=== PATIENT | male | born 1960 | race Caucasian/White ===

== ENCOUNTER → 2018-07-16 11:47 | Outpatient (CLI) | payer OTHER, SELFPAY ==
[2018-07-16 14:07] LABS: PSA,Total - Annual Screen 1.29 ng/mL (0.00-4.00)
== END ==
PROVIDERS: Family Provider Nurse Practitioner Adult Health; PCP Nurse Practitioner Adult Health; Referring Provider Urology; Visit Provider Urology
DX: Z12.5 Encounter for screening for malignant neoplasm of prostate (principal)
CPT/HCPCS: 36415; 84153; G0103

== ENCOUNTER → 2020-02-14 11:56 | Outpatient (CLI) | payer OTHER, SELFPAY ==
[2017-01-21 18:28] VITALS: BMI 31.7
[2020-02-14 13:25] LABS: PSA,Total - Annual Screen 0.94 ng/mL (0.00-4.00)
== END ==
PROVIDERS: PCP Nurse Practitioner Adult Health; Referring Provider Urology; Visit Provider Urology
DX: Z12.5 Encounter for screening for malignant neoplasm of prostate (principal)
CPT/HCPCS: 36415; 84153; G0103

== ENCOUNTER → 2021-06-29 16:25 | Outpatient (CLI) | payer OTHER, SELFPAY ==
[2021-06-29 18:21] LABS: PSA,Total - Annual Screen 0.98 ng/mL (0.00-4.00)
== END ==
PROVIDERS: PCP Nurse Practitioner Adult Health; Referring Provider Nurse Practitioner Adult Health; Visit Provider Nurse Practitioner Adult Health
DX: Z12.5 Encounter for screening for malignant neoplasm of prostate (principal)
CPT/HCPCS: 36415; 84153; G0103

== ENCOUNTER → 2022-07-05 | Outpatient (CLI) | payer OTHER, SELFPAY ==
[2022-07-05 16:41] LABS: PSA,Total - Annual Screen 0.96 ng/mL (0.00-4.00)
== END | disposition home or self-care (01) ==
LOC: LAB 15:22
PROVIDERS: PCP Nurse Practitioner Adult Health; Referring Provider Registered Nurse; Visit Provider Registered Nurse
DX: Z12.5 Encounter for screening for malignant neoplasm of prostate (principal)
CPT/HCPCS: 36415; 84153; G0103

== ENCOUNTER 2022-09-13 08:49 | Emergency (ER) | payer OTHER, SELFPAY ==
[2022-09-13 08:51] VITALS: BP 128/77; PULSE 93; RESP 12; TEMP 36.7; O2SAT 96; BMI 28.7
--- NOTE | 2022-09-13 09:12 | EKG12_ITS ---
Test Reason : RE CHECK Blood Pressure : / mmHG Vent. Rate : 092 BPM Atrial Rate : 092 BPM P-R Int : 198 ms QRS Dur : 068 ms QT Int : 344 ms P-R-T Axes : 063 031 004 degrees QTc Int : 425 ms Normal sinus rhythm Nonspecific ST abnormality Abnormal ECG Confirmed by DOMONIQUE DAVIS, YISEL ([id number]), associate entertainment editor ROOSEVELT MARRERO ([id number]) on 09/14/2022 9:46:02 AM Referred By: HILARY Confirmed By:YISEL YOUSSEF MD
--- NOTE | 2022-09-13 09:12 | EDS_ITS ---
HPI History of Present Illness Chief Complaint: Palpitations Informant: patient and EMS Onset/Context/Timing Onset: Today (about 10 min prior to EMS arrival) Context: Sudden Onset Timing: Continuous Quality: racing HB Location: chest Current Severity: Gone Maximum Severity: Severe Worsened by: nothing Relieved by: adenosine given by EMS Associated Symptoms Associated Symptoms: none Narrative Narrative: Patient had a racing palpitations that started suddenly while at work today. He was feeling fine prior to this and has had no recent illness or injury, medication changes, or new [id number] medications. This is happened before but it was never captured on EKG/monitor, so EMS was called immediately, they found SVT on their monitor, place an IV, give the patient adenosine, and this immediately terminated the dysrhythmia now the patient is asymptomatic and feels fine. He states this is happened maybe 2 other times, but it was never captured on monitor or EKG. He did follow-up with cardiology, this was last year and he was supposed to have a 6-month follow-up which has not occurred yet. [facility] Medical History Diabetes Hyperlipidemia SVT (supraventricular tachycardia) Home Medications metformin 500 mg 24 hr tablet,extended release 1,000 mg PO BIDCM 01/21/17 [History Last Taken Unknown] pravastatin 40 mg tablet 40 mg PO QHS 01/21/17 [History Last Taken Unknown] tamsulosin 0.4 mg capsule (Flomax) 0.4 mg PO DAILY 01/21/17 [History Last Taken Unknown] Allergy/AdvReac Type Severity Reaction Status Date / Time morphine Allergy Nausea/Vom/ Verified 09/13/22 08:50 Diarrhea Social History Smoking Status: Current every day smoker tobacco type: cigarettes ROS ROS ED Constitutional Constitutional ED: Denies chills or fever(s) Eyes Eyes: Denies change in vision or diplopia ENT ENT ED: Denies rhinorrhea or sore throat Cardiovascular Cardiovascular: Reports palpitations and racing heartbeat; Denies chest pain Respiratory/Chest Respiratory/Chest: Denies cough or dyspnea Gastrointestinal Gastrointestinal: Denies abdominal pain, diarrhea, nausea or vomiting Genitourinary Genitourinary ED: Denies dysuria or hematuria Musculoskeletal Musculoskeletal: Denies back pain or neck pain Integumentary Denies abscess or rash Neurologic Neurologic: Denies headache(s), paresthesias or weakness Psychiatric Psychiatric: Denies anxiety or suicidal thoughts EXAM Physical Exam Const Vital Signs: 09/13/22 08:51 09/13/22 08:58 Temperature 98.1 F Temperature Source Oral Pulse Rate 93 Respiratory Rate 12 Respiratory Pattern Normal Blood Pressure 128/77 H Blood Pressure Mean 94 Pulse Ox 96 Oxygen Delivery Method Room Air Positive well nourished and well developed General Appearance ED: well developed and NAD HEENT Reports moist mucous membranes normocephalic and atraumatic Eyes PERRL and EOMs intact bilaterally Neck full ROM and supple Resp normal respiratory effort and clear to auscultation bilaterally Cardio regular rate, regular rhythm and no murmurs GI non-tender and non-distended Auscultation: normoactive bowel sounds Palpation: soft Back/Spine no CVA tenderness General Back: other FROM Extremity normal to inspection and no calf tenderness General Extremety ED: Negative for edema, pulses abnormal or tenderness General Extremity: Negative for edema or pulses abnormal Neuro oriented x3, CN's II-XII intact bilaterally and no sensory deficits noted Sensorium / Orientation: awake and alert Motor Exam: strength 5/5 throughout Psych mental status grossly normal Skin no rashes or lesions noted and no wounds MDM MDM MDM Narrative Medical decision making narrative: Patient was monitored, he had no recurrence of symptoms or telemetry events or ectopy. His glucose is a little high, probably from the stress of the episode. His calcium is a little elevated, unknown significance, just barely off the scale. I discussed that with him, he should follow-up to at least have this repeated possibly worked up. I did review the rhythm strips and notes from EMS. I interpreted the rhythm strips from EMS, SVT. 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 His EKG here is normal, on my interpretation. He did not have any ischemic symptoms to suggest the need for admission and further cardiac work-up emergently. Discharged home in stable condition with family. Lab Data Attestation: I reviewed the patient's lab results. Labs: Laboratory Results - last 24 hr 09/13/22 09/13/22 08:30 08:30 WBC 9.9 RBC 4.65 Hgb 15.1 Hct 44.4 MCV 95.5 H MCH 32.5 H MCHC 34.0 RDW Std Deviation 42.9 RDW Coeff of Camilo 12.4 Plt Count 209 MPV 10.3 Immature Gran % (Auto) 0.300 Neut % (Auto) 75.7 H Lymph % (Auto) 16.1 L [place] % (Auto) 6.6 Eos % (Auto) 0.9 Baso % (Auto) 0.4 Absolute Neuts (auto) 7.5 Absolute Lymphs (auto) 1.59 Nucleated RBC % 0 Sodium 137 Potassium 4.2 Chloride 103 Carbon Dioxide 27.0 Anion Gap 7 BUN 15 Creatinine 1.19 Estim Creat Clear Calc 65.19 Est GFR (MDRD) Af Amer 80 Est GFR (MDRD) Non-Af 66 BUN/Creatinine Ratio 12.6 Glucose 324 H Calcium 10.2 H Rhythm Strip Rhythm Strip: Sinus Rhythm Rate: 90 Ectopy: None EKG Initial EKG: Attestation: I personally reviewed and interpreted this EKG as follows: Interpretation: Sinus Rhythm and No Acute Injury Pattern Comments: normal EKG Discharge Plan Triage Chief Complaint: Palpitations ED Provider: Christiano Webber Dx/Rx/DC Orders Clinical Impression: SVT (supraventricular tachycardia), Type 2 diabetes mellitus with hyperglycemia, Hypercalcemia Instructions: Supraventricular Tachycardia, Hypercalcemia Dc Prescriptions: No Action pravastatin 40 MG tablet 40 mg PO QHS tamsulosin [Flomax] 0.4 MG capsule 0.4 mg PO DAILY metformin 500 MG tablet,ER koki.retention 24 hr 1,000 mg PO BIDCM Primary Care Provider: Howie Nicolas Referrals: Germ Drier, your [Other] - 1-2 Weeks Kristen Trujillo NP, AUDIOVISUAL EQUIPMENT OPERATOR-C [Non-Staff] - Disposition Disposition: Home, Self Care
[2022-09-13 09:24] LABS: Absolute Lymphocyte Count 1.59 X10^3/uL (0.83-4.51); Absolute Neutrophil Count 7.5 X10^3/uL (2.0-7.7); Basophil# 0.04 X10^3/uL; Basophil% 0.4 % (0-1); Eosinophil# 0.09 X10^3/uL; Eosinophils% 0.9 % (0-5); Hematocrit 44.4 % (40-54); Hemoglobin 15.1 g/dL (13.0-16.5); Lymphocyte # 1.59 X10^3/ul (0.83-4.51); Lymphocyte % 16.1 % (19-41); Mean Corpuscular Hgb 32.5 pg (27.0-32.0); Mean Corpuscular Volume 95.5 fL (80-94); Mean Platelet Vol. 10.3 fl (6.2-12.0); Monocyte# 0.65 X10^3/uL; Monocyte% 6.6 % (0-10); NRBC Flagged by Analyzer 0 % (0-5); Neutrophil # 7.46 X10^3/uL (2.7-7.7); Neutrophil % 75.7 % (47-70); Platelet Count 209 K/mm3 (150-450); RBC Distribution Width CV 12.4 % (11.6-14.6); RBC Distribution Width SD 42.9 fl (35.1-43.9); Red Blood Count 4.65 M/mm3 (4.6-6.2); White Blood Count 9.9 K/mm3 (4.4-11.0)
[2022-09-13 09:42] LABS: Anion Gap 7 (5-15); BUN 15 mg/dL (7-18); BUN/Creat Ratio 12.6 RATIO (10-20); Calcium,Total 10.2 mg/dL (8.5-10.1); Chloride 103 mmol/L (98-107); Creatinine, Serum 1.19 mg/dL (0.70-1.30); EST Glomerular Filtration Rate 66 mL/min (>60); Est Glom Filt Rate - Afr Amer 80 mL/min (>60); Estimated Creatinine Clearance 65.19 ml/min; Glucose 324 mg/dL (74-106); Potassium 4.2 mmol/L (3.5-5.1); Sodium Level 137 mmol/L (136-145)
[2022-09-13 10:28] VITALS: BP 115/79; PULSE 68; RESP 15; O2SAT 97
== END 2022-09-13 10:29 | disposition home or self-care (01) ==
LOC: ED 09:33
PROVIDERS: Emergency Provider Emergency Medicine; PCP Family Medicine; Visit Provider Emergency Medicine
DX: E11.65 Type 2 diabetes mellitus with hyperglycemia (principal); I47.1 Supraventricular tachycardia; E83.52 Hypercalcemia; E78.5 Hyperlipidemia, unspecified; R00.2 Palpitations; F17.210 Nicotine dependence, cigarettes, uncomplicated
CPT/HCPCS: 80048; 85025; 93005; 99285

== ENCOUNTER 2024-07-07 14:55 | Emergency (ER) | payer OTHER, SELFPAY ==
[2024-07-07 14:56] VITALS: BP 142/86; PULSE 92; RESP 16; TEMP 36.5; O2SAT 100; BMI 24.9
--- NOTE | 2024-07-07 15:08 | CT_ITS ---
STUDY: CT Abdomen And Pelvis W/ Contrast Injection 07/07/2024 4:12 PM REASON FOR EXAM: Male, 63 years old. Abdominal pain right sided abd pain, n/v Individualized dose optimization techniques were used for this CT. COMPARISON: None. TECHNIQUE: CT Abdomen And Pelvis W/ Contrast Injection IV 100mL [id number] FINDINGS: There are atherosclerotic calcifications of visualized coronary arteries. The visualized portions of the heart are within normal limits. There are hypodensities of the liver. These maybe cysts but are indeterminate and other etiologies are not excluded. Normal gallbladder and extrahepatic biliary system. Normal spleen. Normal pancreas. Normal bilateral adrenal glands. Mild right hydronephrosis caused by 13 mm right renal pelvic stone. Left renal cortical scarring. Inflammation around the right kidney. There is a small hiatal hernia. Normal small intestine. There are multiple colonic diverticula consistent with diverticulosis. There is non-visualization of the appendix. There are calcifications of the abdominal aorta. This is consistent for atherosclerotic disease. There is NO abdominal aortic aneurysm. Vascular workup can be obtained based on clinical correlation. Normal inferior vena cava. Subcentimeter mesenteric lymph nodes. The urinary bladder is distended. This can suggest urinary retention. 13 mm stone in the base of the urinary bladder. Normal abdominal wall. There are diffuse degenerative changes of the visualized lumbar spine. CT/Abdomen/Pelvis W IV Cont ONLY IMPRESSION: (NOT LISTED IN ORDER OF SIGNIFICANCE) Mild right hydronephrosis caused by 13 mm right renal pelvic stone. 13 mm stone in the base of the urinary bladder. the urinary bladder is distended. This can suggest urinary retention. Other findings as above. Electronically Signed: Horacio Tena MD at 16:15 EDT ,
--- NOTE | 2024-07-07 15:09 | EDS_ITS ---
HPI HPI - GI History of Present Illness Chief Complaint: Abd Pain Informant: patient Abdominal Pain/Flank Pain Onset: Today (About 5 hours ago) Context: Gradual Onset Timing: Continuous Quality: Aching and Sharp Location: RLQ Current Severity: Severe Maximum Severity: Severe Worsened by: Car ride Relieved by: Nothing Nausea/Vomiting/Emesis GI Symptom: Positive for Nausea and Vomiting Quality: Positive for Nonbilious Severity: Moderate Diarrhea/Melena/Hematochezia GI Symptom: Negative for Diarrhea, Melena or Hematochezia Associated Symptoms Associated Symptoms: Negative for Dysuria, Frequency or Hematuria Narrative Narrative: Healthy 63-year-old male has been having abdominal pain for the last 5 hours that has been on the right side. Associated with nausea and vomiting. [place] well prior to this. States he has had some occasional episodes of this in the past 3 weeks or so that have been uncommon and relatively brief in duration not like this. No prior history of any abdominal surgeries. Pain does not radiate into his scrotum/testicle or his back or his chest and he denies any other symptoms. Normal bowel movements and urination recently. [facility] Medical History Hyperlipidemia Diabetes SVT (supraventricular tachycardia) Home Medications ?Medication ?Instructions ?Recorded ?Last Taken ?Type metformin 500 mg 24 hr 1,000 mg PO BIDCM 01/21/17 Unknown History tablet,extended release (gastric retention) pravastatin 40 mg tablet 40 mg PO QHS 01/21/17 Unknown History tamsulosin 0.4 mg capsule (Flomax) 0.4 mg PO DAILY 01/21/17 Unknown History oxycodone-acetaminophen 5 mg-325 1 tab PO Q4H PRN Pain 3 days #15 07/07/24 Unknown Rx mg tablet TABLETS sulfamethoxazole 800 1 tab PO BID #14 TABLETS 07/07/24 Unknown Rx mg-trimethoprim 160 mg tablet Allergy/AdvReac Type Severity Reaction Status Date / Time morphine Allergy Nausea/Vom/ Verified 07/07/24 14:56 Diarrhea Social History Smoking Status: Current every day smoker tobacco type: cigarettes ROS ROS ED Constitutional Constitutional ED: Denies chills or fever(s) Eyes Eyes: Reports other Details: Right upper eyelid itching, redness, swelling and some mild amount of creamy discharge x 2-3 days ; Denies change in vision or diplopia ENT ENT ED: Denies rhinorrhea or sore throat Cardiovascular Cardiovascular: Denies chest pain or palpitations Respiratory/Chest Respiratory/Chest: Denies cough or dyspnea Gastrointestinal Gastrointestinal: Reports abdominal pain, nausea and vomiting; Denies diarrhea Genitourinary Genitourinary ED: Denies dysuria or hematuria Musculoskeletal Musculoskeletal: Denies back pain or neck pain Integumentary Denies abscess or rash Neurologic Neurologic: Denies headache(s), paresthesias or weakness Psychiatric Psychiatric: Denies anxiety or suicidal thoughts EXAM Physical Exam Const Vital Signs: 07/07/24 14:56 07/07/24 16:55 Temperature 97.7 F L Temperature Source Oral Pulse Rate 92 75 Respiratory Rate 16 18 Blood Pressure 142/86 H 99/57 L Blood Pressure Mean 104 71 Pulse Ox 100 98 Oxygen Delivery Method Room Air Room Air Positive well nourished and well developed General Appearance ED: well developed and NAD HEENT Reports moist mucous membranes normocephalic and atraumatic Eyes PERRL and EOMs intact bilaterally Eyes Narrative: Right upper eyelid is erythematous, mildly swollen, but nontender throughout. There is a small focal area of erythema at the eyelid margin that is not pointing like an abscess, but looks like it could have been the source of all of the erythema but it is completely nontender and without any active discharge. There is no bulbar conjunctival injection or chemosis or active discharge present. Neck full ROM and supple Resp normal respiratory effort and clear to auscultation bilaterally Cardio regular rate, regular rhythm and no murmurs GI non-distended GI Narrative: Tender without guarding or rebound throughout the right side of the abdomen including the subcostal right upper quadrant and the right lower quadrant at McBurney's point. Negative Rovsing. Auscultation: normoactive bowel sounds Palpation: soft Back/Spine no CVA tenderness General Back: other FROM Extremity normal to inspection General Extremety ED: Negative for edema, pulses abnormal or tenderness General Extremity: Negative for edema or pulses abnormal Neuro oriented x3, CN's II-XII intact bilaterally and no sensory deficits noted Sensorium / Orientation: awake and alert Motor Exam: strength 5/5 throughout Psych mental status grossly normal and thought process normal Skin no rashes or lesions noted and no wounds MDM MDM MDM Narrative Medical decision making narrative: Will given the location of the patient's tenderness and his symptoms, cholelithiasis/cholecystitis and acute appendicitis as well as other GI etiologies hemodynamics are in the differential and a CT believe is warranted first in addition to labs, urine, symptom control. Workup reviewed his labs are normal, CT of the abdomen/pelvis images I reviewed and report as well which I agree with, basically showing that he has several stones in the urinary tract on the right side which is probably causing his symptoms. There is a 13 mm right renal pelvic stone that appears to be causing an obstruction with mild right hydronephrosis as well as 13 mm stone separate from this in the base of the urinary bladder along with a distended bladder although the patient has been able to urinate, and gave us a urine specimen after the CT. Therefore he does not clinically have acute urinary retention as the CT results suggest. After giving him fentanyl, Zofran, Toradol he is pain- free and feels good. He is clinically and hemodynamically stable. His urinalysis is brown/light red without clots or gross hematuria, he states this has been going on off and on for like a year. It shows signs of blood and infection. We do not have urology on-call to discuss this with. He follows as an outpatient with Dr. Bui. Since he is pain-free and his pain was easy to control and he is not septic, I think it would be reasonable to prescribe him analgesics, antibiotics, and have him follow-up closely with urology as an outpatient as he would be unlikely to need an emergent procedure right now. If he has intractable symptoms or starts developing fevers or feeling very poorly, he is encouraged to return to the ER immediately at that point. He is comfortable with that overall plan. Lab Data Attestation: I reviewed the patient's lab results. Labs: Laboratory Results - last 24 hr 07/07/24 07/07/24 15:20 16:36 WBC 10.6 RBC 4.76 Hgb 16.0 Hct 45.2 MCV 95.0 H MCH 33.6 H MCHC 35.4 RDW Std Deviation 42.9 RDW Coeff of Camilo 12.4 Plt Count 263 MPV 9.8 Immature Gran % (Auto) 0.800 Neut % (Auto) 82.2 H Lymph % (Auto) 11.8 L [place] % (Auto) 4.6 Eos % (Auto) 0.3 Baso % (Auto) 0.3 Absolute Neuts (auto) 8.7 H Absolute Lymphs (auto) 1.25 Nucleated RBC % 0 Sodium 136 Potassium 4.2 Chloride 104 Carbon Dioxide 24.0 Anion Gap 8 BUN 14 Creatinine 1.13 Estim Creat Clear Calc 66.91 Est GFR (MDRD) Af Amer 84 Est GFR (MDRD) Non-Af 70 BUN/Creatinine Ratio 12.4 Glucose 281 H Calcium 10.1 Total Bilirubin 0.60 AST 12 L ALT 22 Alkaline Phosphatase 75 Total Protein 7.8 Albumin 4.1 Globulin 3.7 Albumin/Globulin Ratio 1.1 Lipase 56 Urine Color Brown Urine Clarity Cloudy Urine pH 7.0 Ur Specific [place] 1.010 Urine Protein 100 H Urine Glucose (UA) 100 H Urine Ketones 15 H Urine Occult Blood 250 H Urine Nitrite Negative Urine Bilirubin Negative Urine Urobilinogen 1 H Ur Leukocyte Esterase 500 H Urine RBC > 100 SEEN Urine WBC >100 SEEN Ur Squamous Epith Cells 0-5 SEEN Urine Bacteria 2+ Urine Mucus 1+ Radiography Diagnostic Testing: Clinical Impression(s) from Imaging Studies Abdomen/Pelvis CT 07/07/24 15:08 IMPRESSION: (NOT LISTED IN ORDER OF SIGNIFICANCE) Mild right hydronephrosis caused by 13 mm right renal pelvic stone. 13 mm stone in the base of the urinary bladder. the urinary bladder is distended. This can suggest urinary retention. Other findings as above. Electronically Signed: Horacio Tena MD at 16:15 EDT Reading Location ID and State: [facility] / [place] , Service support , Discharge Plan Triage Chief Complaint: Abd Pain ED Provider: Christiano Webber Dx/Rx/DC Orders Clinical Impression: Urolithiasis, Renal colic on right side, Acute UTI Instructions: ED Kidney Stone with Pain Prescriptions: New oxycodone-acetaminophen 5-325 mg tablet 1 tab PO Q4H PRN (Reason: Pain) 3 Days Qty: 15 0RF sulfamethoxazole-trimethoprim 800-160 mg tablet 1 tab PO BID Qty: 14 0RF No Action pravastatin 40 MG tablet 40 mg PO QHS tamsulosin [Flomax] 0.4 MG capsule 0.4 mg PO DAILY metformin 500 MG tablet,ER koki.retention 24 hr 1,000 mg PO BIDCM Primary Care Provider: Howie Nicolas Referrals: Santino Bui MD [Med Staff - Active Staff] - As soon as possible (call for appt) Print Language: Polish Disposition Disposition: Home, Self Care
[2024-07-07] MEDS: Ondansetron 4 MG/2 ML Vial IV (15:17)
[2024-07-07] MEDS: Ketorolac 15 MG/ML Vial IV (15:18)
[2024-07-07] MEDS: fentaNYL 100 MCG/2 ML Ampul 50 MCG IV (15:18)
[2024-07-07 15:30] LABS: Absolute Lymphocyte Count 1.25 X10^3/uL (0.83-4.51); Absolute Neutrophil Count 8.7 X10^3/uL (2.0-7.7); Basophil# 0.03 X10^3/uL; Basophil% 0.3 % (0-1); Eosinophil# 0.03 X10^3/uL; Eosinophils% 0.3 % (0-5); Hematocrit 45.2 % (40-54); Lymphocyte # 1.25 X10^3/ul (0.83-4.51); Lymphocyte % 11.8 % (19-41); Mean Corp Hgb Conc 35.4 g/dL (32-36); Mean Corpuscular Hgb 33.6 pg (27.0-32.0); Mean Platelet Vol. 9.8 fl (6.2-12.0); Monocyte# 0.49 X10^3/uL; Monocyte% 4.6 % (0-10); NRBC Flagged by Analyzer 0 % (0-5); Neutrophil # 8.73 X10^3/uL (2.7-7.7); Neutrophil % 82.2 % (47-70); Platelet Count 263 K/mm3 (150-450); RBC Distribution Width CV 12.4 % (11.6-14.6); RBC Distribution Width SD 42.9 fl (35.1-43.9); Red Blood Count 4.76 M/mm3 (4.6-6.2); White Blood Count 10.6 K/mm3 (4.4-11.0)
--- OUTSIDE RECORDS SUMMARY | 2024-07-07 15:32 | XMS RPT_ITS | CCD ---
Author Organization [facility] Care Team Providers Care Architectural Inspector Name Role Phone Nora Bardales MD Primary Care Provider [phone] MAYO QUEEN Attending Unavailable NORA BARDALES Primary Care Unavailable Nora Bardales MD Primary Care Provider NORA BARDALES Primary Care Unavailable MD GUZMAN VINAY Attending Unavailable CARLA GUZMAN Referring Unavailable NORA BARDALES Primary Care Unavailable YENIFER CARRASCO Referring Unavailable NORA BARDALES Primary Care Unavailable YENIFER CARRASCO Attending Unavailable NORA BARDALES Primary Care Unavailable NORA BARDALES Primary Care Unavailable MD GUZMAN VINAY Referring Unavailable Allergies Allergy Classification Reported Allergen(s) Allergy Type Date of Onset Reaction(s) Facility (20 sources) Morphine; Translations: [MORPHINE] Drug Allergy 06-23-2005 [facility] Work Phone: Medications Current Medications Medication Drug Class(es) Dates Sig (Normalized) Sig (Original) Blood-Glucose Meter monitoring kit (20 sources) Start: 10-19-2023 End: 10-20-2023 Blood-Glucose Meter monitoring kit Glucose Meter of Choice - Kit - Dx: Type 2 DM - Uncontrolled E11.65 1 Each 0 10/19/2023 10/20/2023 Active Start: 08-18-2012 End: 10-19-2023 Blood-Glucose Meter monitori ng kit Indications: Diabetes mellitus type II Daily check. For DM type II, Dx 250.00 Nora Bardales MD 1 Each 0 08/18/2012 10/19/2023 Discontinued (Cost of medication) Start: 08-18-2012 Blood-Glucose Meter monitoring kit Indications: Diabetes mellitus type II Daily check. For DM type II, Dx 250.00 Nora Bardales MD 1 Each 0 08/18/2012 Active Comment on above: Daily check. For DM type II, Dx 250.00 Nora Bardales MD Glucose Meter of Cho ice - Kit - Dx: Type 2 DM - Uncontrolled E11.65 metFORMIN hydrochloride 500 mg oral tablet (20 sources) Biguanide Start: 2 End: 5 take 2 tablets by mouth twice daily at mealtime metFORMIN (GLUCOPHAGE) 500 mg tablet Take 2 tablets by mouth two times a day with meals. 360 tablet 3 10/19/2023 10/18/2024 Active Start: 09-28-2021 End: 12-21-2021 metFORMIN (GLUCOPHAGE) 500 m g tablet Indications: Controlled type 2 diabetes mellitus without complication, without long-term current use of insulin (HCC) TAKE 2 TABLETS 2 TIMES DAILY WITH MEALS 360 tablet 0 12/21/2021 Active Comment on above: TAKE 2 TABLETS 2 MARGE ES DAILY WITH MEALS Take 2 tablets by mo ut twice daily with meals. Take 2 tablets by mo ut two times a day with meals. perflutren lipid microspheres 1.3 mL in NaCl (PF) 0.9% 10 mL injection (DEFINITY) (4 sources) Start: 11-23-2022 End: 02-22-2024 perflutren lipid microspheres 1.3 mL in NaCl (PF) 0.9% 10 mL injection (DEFINITY) 125 ml sodium chloride 9 mg/ml prefilled syringe (4 sources) Start: 11-23-2022 End: 02-22-2024 sodium chloride 0.9 % (flush) 10 mL (BD POSIFLUSH) Completed/Discontinued Medications Medication Drug Class(es) Dates Sig (Normalized) Sig (Original) ascorbic acid 500 mg oral tablet (20 sources) Vitamin C take 1 tablet by mouth once daily ascorbic acid, vitamin C, (VITAMIN C) 500 mg tablet Take 500 mg by mouth once daily. 0 Active Comment on above: Take 500 mg by mouth once daily. cholecalciferol, vitamin D3, (VITAMIN D3 ORAL) (20 sources) take 1 tablet by mouth once daily cholecalciferol, vitamin D3, (VITAMIN D3 ORAL) Take 1 tablet by mouth once daily. 0 Active Comment on above: Take 1 tablet by yonatan once daily. ferrous sulfate (20 sources) ferrous sulfate (IRON ORAL) Take by mouth. 0 Active Comment on above: Take by mouth. Ibuprofen (12 sources) Nonsteroidal Anti-inflammatory Drug IBUPROFEN ORAL Take by mouth once daily. 0 Active Comment on above: Take by mouth once d aily. MULTIVITS,CA,MIN/ IRON/FA/LYCOP (CENTRUM ULTRA MEN'S ORAL) (20 sources) MULTIVITS,CA,MIN /I LORNA/FA/LYCOP (CENTRUM ULTRA MEN'S ORAL) Take by mouth once daily. 0 Active Comment on above: Take by mouth once d aily. raNITIdine (8 sources) Histamine-2 Receptor Antagonist End: 04-12-2022 RANITIDINE HCL ORAL Take by mouth once daily. 0 04/12/2022 Discontinued RANITIDINE HCL O RAL Take by mouth once daily. 0 Active Comment on above: Take by mouth once d aily. simvastatin 40 mg oral tablet (20 sources) HMG-CoA Reductase Inhibitor Start: 1 End: 4 take 1 tablet by mouth once daily at bedtime simvastatin (ZOCOR) 40 mg tablet Indications: Mixed hyperlipidemia Take 1 tablet by mouth daily at bedtime. For cholesterols. 90 tablet 3 10/19/2023 Active Comment on above: Take 1 tablet by yonatan th daily at bedtime. For cholesterols. SITagliptin 100 mg oral tablet (20 sources) Dipeptidyl Peptidase 4 Inhibitor Start: 2 End: 4 take 1 tablet by mouth once daily SITagliptin phosphate (JANUVIA) 100 mg tablet Take 1 tablet by mouth once daily. 90 tablet 3 10/19/2023 Active Start: 06-23-2021 End: 04-12-2022 JANUVIA 25 mg tablet Indicat ions: Controlled type 2 diabetes mellitus without complication, without long-term current use of insulin (HCC) TAKE 1 TABLET ONCE DAILY 30 tablet 3 12/21/2021 04/12/2022 Discontinued Comment on above: Take 1 tablet by yonatan th once daily. TAKE 1 TABLET ONCE D AILY tamsulosin hydrochloride 0.4 mg oral capsule (20 sources) alpha-Adrenergic German Start: 09-20-2007 tamsulosin hcl(FLOMAX 0.4 MG 24 HR CAP) Take one(1) tablet at bedtime. 0 09/20/2007 Active Comment on above: Take one(1) tablet a t bedtime. vitamin e 180 mg oral tablet (20 sources) Vitamin E 400 un it ORAL Tab Take by mouth once daily. 0 Active Comment on above: Take by mouth once d aily. Problems Active Problems Problem Classification Problem Date Documented Date Episodic/Chronic Cardiac dysrhythmias (3 sources) Supraventricular tachycardia; Translations: [Supraventricular tachycardia] Onset: 06-19-2023 Chronic Diabetes mellitus with complications (5 sources) Type II diabetes mellitus uncontrolled; Translations: [Type 2 diabetes mellitus with hyperglycemia] Onset: 10-19-2023 Chronic Diabetes mellitus without complication (20 sources) Type 2 diabetes mellitus without complication; Translations: [Type 2 diabetes mellitus without complications] Onset: 08-18-2012 Chronic Disorders of lipid metabolism (20 sources) Hyperlipidemia; Translations: [Hyperlipidemia, unspecified] Onset: 08-13-2012 08-13-2012 Chronic Hyperplasia of prostate (20 sources) Benign prostatic hyperplasia; Translations: [Benign prostatic hyperplasia without lower urinary tract symptoms] Onset: 09-07-2011 09-06-2021 Chronic Other aftercare (1 source) Follow-up status; Translations: [Encounter for follow-up examination after completed treatment for conditions other than malignant neoplasm] Episodic Other nutritional; endocrine; and metabolic disorders (2 sources) Hypercalcemia; Translations: [Hypercalcemia] Chronic Other screening for suspected conditions (not mental disorders or infectious disease) (3 sources) Patient encounter status; Translations: [Encounter for screening for malignant neoplasm of colon] Episodic Other upper respiratory infections (1 source) Viral upper respiratory tract infection; Translations: [Acute upper respiratory infection, unspecified] Episodic Residual codes; unclassified (2 sources) Tobacco user; Translations: [Tobacco use] Episodic Residual codes; unclassified (1 source) Lung cancer screening declined; Translations: [Procedure and treatment not carried out because of patient's decision for unspecified reasons] 10-19-2023 Episodic Substance-related disorders (2 sources) Smoker; Translations: [Nicotine dependence, unspecified, uncomplicated] Chronic Past or Other Problems Problem Classification Problem Date Documented Da te Episodic/Chronic Cardiac dysrhythmias (5 sources) Palpitations; Translations: [Palpitations] Onset: 11-23-2022 Episodic Nonspecific chest pain (20 sources) Chest pain; Translations: [Chest pain, unspecified] Onset: 07-18-2016 07-18-2016 Episodic Results Test Name Value Interpretation Reference Range Facility ALBUMIN/CREAT RATIO RND URon 10-25-2023 Albumin DL <= 20 mg/L (U) [Mass/Vol] 70.6 mg/L Normal [facility] Comment on above: Order Comment: Speci men Type: URINE SPECIMEN Ordering Facility: [facility] Address: [address] [place] [address] Performed By: #### U ACR #### [facility] CLIA [id number] [address] [place] [address] [place] Albumin/Creatinine (U) [Mass ratio] 286 mg/g High <30 [facility] Comment on above: Order Comment: Speci men Type: URINE SPECIMEN Ordering Facility: [facility] Address: [address] [place] [address] Result Comment: Adul t Male and Female Nephrotic Criteria: <30 mg/g is considered normal to mildly increased 30-300 mg/g is considered moderately increased >300 mg/g is considered severely increased KDIGO. (2013). KDIGO 2012 Clinical Practice Guideline for the Evaluation and Management of Chronic Kidney Disease. Official Journal of the International Society of Nephrology, 3(1), 1-150. Performed By: #### U ACR #### [facility] CLIA [id number] [address] [place] [address] [place] Creatinine (U) [Mass/Vol] 24.7 mg/dL Normal 20.0-300.0 [facility] Comment on above: Order Comment: Speci men Type: URINE SPECIMEN Ordering Facility: [facility] Address: [address] [place] [address] Performed By: #### U ACR #### [facility] CLIA [id number] [address] [place] [address] [place] CBC panel Auto (Bld)on 10-25 Erythrocyte distribution width (RBC) [Ratio] 12.4 % Normal 11.5-15.0 [facility] Comment on above: Order Comment: Speci men Type: BLOOD SPECIMEN Ordering Facility: [facility] Address: [address] [place] [address] Performed By: #### 5 8410-2 #### [facility] CLIA [id number] [address] [place] [address] [place] Hematocrit (Bld) [Volume fraction] 46.7 % Normal 39.0-51.0 [facility] Comment on above: Order Comment: Speci men Type: BLOOD SPECIMEN Ordering Facility: [facility] Address: [address] [place] [address] Performed By: #### 5 8410-2 #### [facility] CLIA [id number] [address] [place] [address] [place] Hemoglobin (Bld) [Mass/Vol] 15.7 g/dL Normal 13.0-17.0 [facility] Comment on above: Order Comment: Speci men Type: BLOOD SPECIMEN Ordering Facility: [facility] Address: [address] [place] [address] Performed By: #### 5 8410-2 #### [facility] CLIA [id number] [address] [place] [address] [place] MCH (RBC) [Entitic mass] 32.0 pg Normal 26.0-34.0 [facility] Comment on above: Order Comment: Speci men Type: BLOOD SPECIMEN Ordering Facility: [facility] Address: [address] [place] [address] Performed By: #### 5 8410-2 #### [facility] CLIA [id number] [address] [place] [address] [place] MCHC (RBC) [Mass/Vol] 33.6 g/dL Normal 30.5-36.0 [facility] Comment on above: Order Comment: Speci men Type: BLOOD SPECIMEN Ordering Facility: [facility] Address: [address] [place] [address] Performed By: #### 5 8410-2 #### [facility] CLIA [id number] [address] [place] [address] [place] MCV (RBC) [Entitic vol] 95.3 fL Normal 80.0-100.0 [facility] Comment on above: Order Comment: Speci men Type: BLOOD SPECIMEN Ordering Facility: [facility] Address: [address] [place] [address] Performed By: #### 5 8410-2 #### [facility] CLIA [id number] [address] [place] [address] [place] Nucleated RBC (Bld) [#/Vol] 10*3/uL Normal <0.01 [facility] Comment on above: Order Comment: Speci men Type: BLOOD SPECIMEN Ordering Facility: [facility] Address: [address] [place] [address] Performed By: #### 5 8410-2 #### [facility] CLIA [id number] [address] [place] [address] [place] Platelet mean volume (Bld) [Entitic vol] 10.6 fL Normal 9.0-12.7 [facility] Comment on above: Order Comment: Speci men Type: BLOOD SPECIMEN Ordering Facility: [facility] Address: [address] [place] [address] Performed By: #### 5 8410-2 #### [facility] CLIA [id number] [address] [place] [address] [place] Platelets (Bld) [#/Vol] 196 10*3/uL Normal 150-400 [facility] Comment on above: Order Comment: Speci men Type: BLOOD SPECIMEN Ordering Facility: [facility] Address: [address] [place] [address] Performed By: #### 5 8410-2 #### [facility] CLIA [id number] [address] [place] [address] [place] RBC (Bld) [#/Vol] 4.90 10*6/uL Normal 4.20-6.00 [facility] Comment on above: Order Comment: Speci men Type: BLOOD SPECIMEN Ordering Facility: [facility] Address: [address] [place] [address] Performed By: #### 5 8410-2 #### [facility] CLIA [id number] [address] [place] [address] [place] WBC (Bld) [#/Vol] 8.34 10*3/uL Normal 3.70-11.00 [facility] Comment on above: Order Comment: Speci men Type: BLOOD SPECIMEN Ordering Facility: [facility] Address: [address] [place] [address] Performed By: #### 5 8410-2 #### [facility] CLIA [id number] [address] [place] [address] [place] Comprehensive metabolic 2000 panelon 10-25-2023 Albumin [Mass/Vol] 4.6 g/dL Normal 3.9-4.9 [facility] Comment on above: Order Comment: Speci men Type: BLOOD SPECIMEN Ordering Facility: [facility] Address: [address] [place] [address] Performed By: #### 2 4323-8, 47926-3 #### [facility] CLIA [id number] [address] [place] [address] [place] ALP [Catalytic activity/Vol] 72 U/L Normal 38-113 [facility] Comment on above: Order Comment: Speci men Type: BLOOD SPECIMEN Ordering Facility: [facility] Address: [address] [place] [address] Performed By: #### 2 4323-8, 02927-7 #### [facility] CLIA [id number] [address] [place] [address] [place] ALT [Catalytic activity/Vol] 13 U/L Normal 10-54 [facility] Comment on above: Order Comment: Speci men Type: BLOOD SPECIMEN Ordering Facility: [facility] Address: [address] [place] [address] Performed By: #### 2 4323-8, 28359-5 #### [facility] CLIA [id number] [address] [place] [address] [place] Anion gap [Moles/Vol] 10 mmol/L Normal 9-18 [facility] Comment on above: Order Comment: Speci men Type: BLOOD SPECIMEN Ordering Facility: [facility] Address: [address] [place] [address] Performed By: #### 2 4323-8, 70295-8 #### [facility] CLIA [id number] [address] [place] [address] [place] AST [Catalytic activity/Vol] 18 U/L Normal 14-40 [facility] Comment on above: Order Comment: Speci men Type: BLOOD SPECIMEN Ordering Facility: [facility] Address: [address] [place] [address] Performed By: #### 2 4323-8, 45422-0 #### [facility] CLIA [id number] [address] [place] [address] [place] Bilirubin [Mass/Vol] 0.5 mg/dL Normal 0.2-1.3 [facility] Comment on above: Order Comment: Speci men Type: BLOOD SPECIMEN Ordering Facility: [facility] Address: [address] [place] [address] Performed By: #### 2 4323-8, 97335-8 #### [facility] CLIA [id number] [address] [place] [address] [place] Calcium [Mass/Vol] 10.7 mg/dL High 8.5-10.2 [facility] Comment on above: Order Comment: Speci men Type: BLOOD SPECIMEN Ordering Facility: [facility] Address: [address] [place] [address] Performed By: #### 2 4323-8, 19048-7 #### [facility] CLIA [id number] [address] [place] [address] [place] Chloride [Moles/Vol] 101 mmol/L Normal 97-105 [facility] Comment on above: Order Comment: Speci men Type: BLOOD SPECIMEN Ordering Facility: [facility] Address: [address] [place] [address] Performed By: #### 2 4323-8, 30620-1 #### [facility] CLIA [id number] [address] [place] [address] [place] CO2 [Moles/Vol] 26 mmol/L Normal 22-30 [facility] Comment on above: Order Comment: Speci men Type: BLOOD SPECIMEN Ordering Facility: [facility] Address: [address] [place] [address] Performed By: #### 2 4323-8, 77858-5 #### [facility] CLIA [id number] [address] [place] [address] [place] Creatinine [Mass/Vol] 1.04 mg/dL Normal 0.73-1.22 [facility] Comment on above: Order Comment: Speci men Type: BLOOD SPECIMEN Ordering Facility: [facility] Address: [address] [place] [address] Performed By: #### 2 4323-8, 15871-1 #### [facility] CLIA [id number] [address] [place] [address] [place] Creatinine and Glomerular filtration rate.predicted panel (S/P/Bld) 81 mL/min/1.73m??? Normal >=60 [facility] Comment on above: Order Comment: Speci men Type: BLOOD SPECIMEN Ordering Facility: [facility] Address: [address] [place] [address] Result Comment: Doris mated Glomerular Filtration Rate (eGFR) is calculated using the 2020 CKD-EPI creatinine equation. This equation utilizes serum creatinine, sex, and age as parameters. The creatinine assay has traceable calibration to isotope dilution-mass spectrometry. Refer to KDIGO guidelines for clinical interpretation. In patients with unstable renal function, e.g. those with acute kidney injury, the eGFR may not accurately reflect actual GFR. Performed By: #### 2 4323-8, 33422-2 #### [facility] CLIA [id number] [address] [place] [address] [place] Glucose [Mass/Vol] 238 mg/dL High 74-99 [facility] Comment on above: Order Comment: Speci men Type: BLOOD SPECIMEN Ordering Facility: [facility] Address: [address] [place] [address] Result Comment: The [place] Diabetes Association (ADA) provides guidance for cutoff values for fasting glucose and random glucose. The ADA defines fasting as no caloric intake for at least 8 hours. Fasting plasma glucose results between 100 to 125 mg/dL indicate increased risk for diabetes (prediabetes). Fasting plasma glucose results greater than or equal to 126 mg/dL meet the criteria for diagnosis of diabetes. In the absence of unequivocal hyperglycemia, results should be confirmed by repeat testing. In a patient with classic symptoms of hyperglycemia or hyperglycemic crisis, random plasma glucose results greater than or equal to 200 mg/dL meet the criteria for diagnosis of diabetes. Reference: Standards of Medical Care in Diabetes 2016, [place] Diabetes Association. Diabetes Care. 2016.39(Suppl 1). Performed By: #### 2 4323-8, 87959-9 #### [facility] CLIA [id number] [address] [place], [place] [id number] [place] Potassium [Moles/Vol] 4.5 mmol/L Normal 3.7-5.1 [facility] Comment on above: Order Comment: Speci men Type: BLOOD SPECIMEN Ordering Facility: [facility] Address: [address] [place] [address] Performed By: #### 2 4323-8, 60444-1 #### [facility] CLIA [id number] [address] [address] [place] Protein [Mass/Vol] 7.5 g/dL Normal 6.3-8.0 [facility] Comment on above: Order Comment: Speci men Type: BLOOD SPECIMEN Ordering Facility: [facility] Address: [address] [place] [address] Performed By: #### 2 4323-8, 16924-5 #### [facility] CLIA [id number] [address] [place] [address] [place] Sodium [Moles/Vol] 137 mmol/L Normal 136-144 [facility] Comment on above: Order Comment: Speci men Type: BLOOD SPECIMEN Ordering Facility: [facility] Address: [address] [place] [address] Performed By: #### 2 4323-8, 38383-1 #### [facility] CLIA [id number] [address] [place] [address] [place] Urea nitrogen [Mass/Vol] 12 mg/dL Normal 9-24 [facility] Comment on above: Order Comment: Speci men Type: BLOOD SPECIMEN Ordering Facility: [facility] Address: [address] [place] [address] Performed By: #### 2 4323-8, 83109-3 #### [facility] CLIA [id number] [address] [place] [address] [place] Lipid 1996 panelon 4 Cholesterol [Mass/Vol] 189 mg/dL Normal <200 [facility] Comment on above: Order Comment: Speci men Type: BLOOD SPECIMEN Ordering Facility: [facility] Address: [address] [place] [address] Result Comment: <200 mg/dL, Desirable 200-239 mg/dL, Borderline high >239 mg/dL, High Performed By: #### 2 4323-8, 89686-9 #### [facility] CLIA [id number] [address] [place] [address] [place] Cholesterol in HDL [Mass/Vol] 54 mg/dL Normal >39 [facility] Comment on above: Order Comment: Speci men Type: BLOOD SPECIMEN Ordering Facility: [facility] Address: [address] [place] [address] Result Comment: 40-5 9 mg/dL, Acceptable >59 mg/dL, High: Negative risk factor for coronary heart disease <40 mg/dL, Low: Positive risk factor for coronary heart disease Performed By: #### 2 4323-8, 32624-1 #### [facility] CLIA [id number] [address] [place], [place] [address] [place] [address] [place] Cholesterol in LDL [Mass/Vol] 111 mg/dL High <100 [facility] Comment on above: Order Comment: Speci men Type: BLOOD SPECIMEN Ordering Facility: [facility] Address: [address] [place] [address] Result Comment: <100 mg/dL, Optimal 100-129 mg/dL, Near optimal/above optimal 130-159 mg/dL, Borderline high 160-189 mg/dL, High >189 mg/dL, Very high Secondary prevention optimal LDL Cholesterol levels are recommended to be < 70 mg/dL Performed By: #### 2 4323-8, 77092-6 #### [facility] CLIA [id number] [address] [place] [address] [place] Cholesterol in LDL/Cholesterol in HDL [Mass ratio] 2.06 {ratio} Normal <2.54 [facility] Comment on above: Order Comment: Eulalioi men Type: BLOOD SPECIMEN Ordering Facility: [facility] Address: [address] [place] [address] Result Comment: Reftha rence: 1. National Cholesterol Education Program ATP III Guideline At-A-Glance Quick Desk Reference: National Heart, Lung, and Blood [place]. National Institutes of Health. 2001: NIH Publication No. 01-3305. 2. An International Atherosclerosis Society position paper: global recommendations for the management of dyslipidemia: executive summary, Atherosclerosis. 2014: 232(2):410-413. Performed By: #### 2 4323-8, 25229-2 #### [facility] CLIA [id number] [address] [place], [place] [address] [place] [address] [place] Cholesterol in VLDL [Mass/Vol] 24 mg/dL Normal <30 [facility] Comment on above: Order Comment: Speci men Type: BLOOD SPECIMEN Ordering Facility: [facility] Address: [address] [place] [address] Performed By: #### 2 4323-8, 26589-4 #### [facility] CLIA [id number] [address] [place] [address] [place] Cholesterol non HDL [Mass/Vol] 135 mg/dL High <130 [facility] Comment on above: Order Comment: Speci men Type: BLOOD SPECIMEN Ordering Facility: [facility] Address: [address] [place] [address] Result Comment: <130 mg/dL, Optimal 130-159 mg/dL, Near optimal/above optimal 160-189 mg/dL, Borderline high 190-219 mg/dL, High >219 mg/dL, Very high Secondary prevention optimal non HDL Cholesterol levels are recommended to be <100 mg/dL Performed By: #### 2 4323-8, 08420-7 #### [facility] CLIA [id number] [address] [place] [address] [place] Cholesterol.total/ Cholesterol in HDL [Mass ratio] 3.50 {ratio} Normal <5.10 [facility] Comment on above: Order Comment: Speci men Type: BLOOD SPECIMEN Ordering Facility: [facility] Address: [address] [place] [address] Performed By: #### 2 4323-8, 45694-5 #### [facility] CLIA [id number] [address] [place] [address] [place] FASTING TIME 12 hrs Normal [facility] Comment on above: Order Comment: Speci men Type: BLOOD SPECIMEN Ordering Facility: [facility] Address: [address] [place] [address] Performed By: #### 2 4323-8, 01726-4 #### [facility] CLIA [id number] [address] [place] [address] [place] Triglyceride [Mass/Vol] 119 mg/dL Normal <150 [facility] Comment on above: Order Comment: Speci men Type: BLOOD SPECIMEN Ordering Facility: [facility] Address: [address] [place] [address] Result Comment: <150 mg/dL, Normal 150-199 mg/dL, Borderline high 200-499 mg/dL, High >499 mg/dL, Very high Performed By: #### 2 4323-8, 49505-9 #### [facility] CLIA [id number] [address] [place] [address] [id number] [place] CNOVon 10-19-2023 CNOV Office Visit (LU[place]AGO ) FERNANDEZSLAVA KIRK ([id number]) 1960 M Date Time Provider Department 10/19/23 10:20 AM YENIFER CARRASCO During your visit today, we recorded the following information about you: Pulse Blood pressure Weight Height 82/minute 111/73 82 kg 1.753 m Yenifer Carrasco APRN.[employer]NAGER 10/19/2023 11:06 AM Addendum This note was created using NoteWriter. Subjective Slava Fernandez is a 62 year old male. Patient here for well adult physical. DMII: hasn't checked his blood sugar in over a year. Sometimes missing doses of metformin, Januvia and statin. Doesn't always eat dinner so will miss some doses of medication. Overdue for eye exam, needs to schedule. Patient reports that he usually eats peanut butter crackers for breakfast and lunch, ham and cheese for dinner, doesn't eat much, not hungry. Smoking: currently smoking 1 PPD, not interested in quitting. The history is provided by the patient. Review of Systems Constitutional: Negative for fatigue. HENT: Negative for hearing loss. Eyes: Negative for visual disturbance. Respiratory: Negative for shortness of breath. Cardiovascular: Negative for chest pain and palpitations. Gastrointestinal: Negative for abdominal pain, constipation, diarrhea, nausea and vomiting. Endocrine: Negative for polydipsia and polyuria. Genitourinary: Negative for dysuria, frequency and urgency. Skin: Negative for color change. Allergic/Immunologic: Positive for immunocompromised state. Neurological: Negative for dizziness, numbness and headaches. Hematological: Does not bruise/bleed easily. Psychiatric/Behavioral: Negative for dysphoric mood and sleep disturbance. The patient is not nervous/anxious. PAST MEDICAL HISTORY Diagnosis Date Diabetes mellitus type 2, controlled, without complications (HCC) Frostbite of foot 1972 walked in a shinnecock. and hands Palpitations PAST SURGICAL HISTORY Procedure Laterality Date VASECTOMY UNI/BI SPX W/POSTOP SEMEN EXAMS ALLERGIES Morphine MEDICATIONS metFORMIN (GLUCOPHAGE) 500 mg tabletTake 2 tablets by mouth twice daily with meals.Disp: 360 tabletRfl: 3 SITagliptin (JANUVIA) 100 mg tabletTake 1 tablet by mouth once daily.Disp: 90 tabletRfl: 3 simvastatin (ZOCOR) 40 mg tabletTake 1 tablet by mouth daily at bedtime. For cholesterols.Disp: 90 tabletRfl: 3 IBUPROFEN ORALTake by mouth once daily.Disp: Rfl: cholecalciferol, vitamin D3, (VITAMIN D3 ORAL)Take 1 tablet by mouth once daily.Disp: Rfl: ascorbic acid, vitamin C, (VITAMIN C) 500 mg tabletTake 500 mg by mouth once daily.Disp: Rfl: ferrous sulfate (IRON ORAL)Take by mouth.Disp: Rfl: MULTIVITS,CA,MIN/IRON/FA/LY PHONOGRAPH CARTRIDGE ASSEMBLER (CENTRUM ULTRA MEN'S ORAL)Take by mouth once daily.Disp: Rfl: Vitamin E 400 unit ORAL TabTake by mouth once daily.Disp: Rfl: tamsulosin hcl(FLOMAX 0.4 MG 24 HR CAP)Take one(1) tablet at bedtime.Disp: Rfl: 0 Blood-Glucose Meter monitoring kitGlucose Meter of Choice - Kit - Dx: Type 2 DM - Uncontrolled E11.65Disp: 1 EachRfl: 0 Lancets lancetsTest blood sugar(s) 2 times daily. Dx: Type 2 DM - Uncontrolled E11.65 Insulin: NoDisp: 100 EachRfl: 11 blood sugar diagnostic (BLOOD GLUCOSE TEST) test stripTest blood sugar(s) 2 times daily. Dx: Type 2 DM - Uncontrolled E11.65 Insulin: NoDisp: 50 StripRfl: 11 FAMILY HISTORY Problem Relation Age of Onset Heart Father Diabetes Mother Cervical Cancer Paternal Grandfather Diabetes Sister Diabetes Sister Heart Brother irregular rhythm Social History Tobacco Use Smoking status: Every Day Packs/day: 1.25 Years: 30.00 Additional pack years: 0.00 Total pack years: 37.50 Types: Cigarettes Smokeless tobacco: Never Tobacco comments: started age 25, quit in 2004 but started again around 07/18 Vaping Use Vaping Use: Never used Substance Use Topics Alcohol use: Yes Alcohol/week: 2.0 standard drinks of alcohol Types: 1 Glasses of Wine (5oz), 1 Cans of Beer (12oz) per week Comment: occasional beer, wine Drug use: No Objective BP 111/73 Pulse 82 Ht 175.3 cm (5' 9.02 ) Wt 82 kg (180 lb 12.4 oz) BMI 26.68 kg/m? Physical Exam Vitals and nursing note reviewed. Constitutional: Appearance: He is not ill-appearing. HENT: Head: Normocephalic. Right Ear: Tympanic membrane and ear canal normal. Left Ear: Tympanic membrane and ear canal normal. Mouth/Throat: Mouth: Mucous membranes are moist. Eyes: Extraocular Movements: Extraocular movements intact. Conjunctiva/sclera: Conjunctivae normal. Pupils: Pupils are equal, round, and reactive to light. Neck: Thyroid: No thyroid mass or thyromegaly. Cardiovascular: Rate and Rhythm: Normal rate and regular rhythm. Pulses: Normal pulses. Heart sounds: Normal heart sounds. Pulmonary: Effort: Pulmonary effort is normal. Breath sounds: Normal breath sounds and air entry. Abdominal: General: Abdomen is flat. (more content not included)... Normal [facility] HEMOGLOBIN A1C (POC)on 10-19 HbA1c (Bld) [Mass fraction] 10.7 % Abnormal 4.3 - 5.6 % [facility] CNCOon 08-25-2023 CNCO Letter Text Letter Text Normal [facility] CNOVon 06-19-2023 CNOV Office Visit (NESS POB) SLAVA FERNANDEZ ([id number]) 1960 M Date Time Provider Department 06/19/23 11:00 AM MAYO QUEENHAGCARDPOB During your visit today, we recorded the following information about you: Pulse Blood pressure Weight Height 59/minute 122/78 83.9 kg 1.753 m Mayo Queen MD 06/19/2023 11:51 AM Signed [facility] [place] [facility] SECTION OF CARDIAC PACING and ELECTROPHYSIOLOGY OUTPATIENT VISIT DATE June 19, 2023 OUTPATIENT VISIT TYPE NEW PRIMARY CARE PHYSICIAN: Nora Bardales [address] [place] [address] [place] [address] REFERRING PHYSICIAN: Jorge Guzman MD. HISTORY OF PRESENT ILLNESS: 62-year-old male with history of dyslipidemia and diabetes who has been experiencing brief episodes of palpitation that was self-limited and infrequent for a number of years. Last fall had had a considerably longer episode when he was feeling palpitation, but no dizziness or chest pain. His episode terminated spontaneously as well. In early 2022 he had an episode of loss for about 40 minutes. He presented to the emergency room, was found to be in a regular narrow complex tachycardia with ventricular rate of approximately 190 bpm that did not respond to vagal maneuvers and was terminated with adenosine injection. The patient was referred to Dr. Guzman who arranged for an echocardiogram and subsequent EPS referral. ECG today shows sinus bradycardia 54 bpm with normal intervals and no obvious preexcitation. Echo showed EF of 65%, no significant LVH or valvular issues. PAST MEDICAL HISTORY Diagnosis Date Diabetes mellitus type 2, controlled, without complications (HCC) Frostbite of foot 1972 walked in a shinnecock. and hands Palpitations MEDICATIONS: metFORMIN (GLUCOPHAGE) 500 mg tabletTake 2 tablets by mouth twice daily with meals.Disp: 360 tabletRfl: 3 simvastatin (ZOCOR) 40 mg tabletTake 1 tablet by mouth daily at bedtime. For cholesterols.Disp: 90 tabletRfl: 3 IBUPROFEN ORALTake by mouth once daily.Disp: Rfl: cholecalciferol, vitamin D3, (VITAMIN D3 ORAL)Take 1 tablet by mouth once daily.Disp: Rfl: ascorbic acid, vitamin C, (VITAMIN C) 500 mg tabletTake 500 mg by mouth once daily.Disp: Rfl: blood sugar diagnostic (BLOOD GLUCOSE TEST) test stripTest blood sugar(s) 1 times daily. Dx: 250.00. Insulin: NoDisp: 100 StripRfl: 3 Lancets lancetsTest blood sugar(s) 1 times daily. Dx: 250.00. Insulin: NoDisp: 100 EachRfl: 11 ferrous sulfate (IRON ORAL)Take by mouth.Disp: Rfl: Blood-Glucose Meter monitoring kitDaily check. For DM type II, Dx 250.00 Nora Bardales MD Disp: 1 EachRfl: 0 MULTIVITS,CA,MIN/IRON/FA/LY PHONOGRAPH CARTRIDGE ASSEMBLER (CENTRUM ULTRA MEN'S ORAL)Take by mouth once daily.Disp: Rfl: Vitamin E 400 unit ORAL TabTake by mouth once daily.Disp: Rfl: tamsulosin hcl(FLOMAX 0.4 MG 24 HR CAP)Take one(1) tablet at bedtime.Disp: Rfl: 0 SITagliptin (JANUVIA) 100 mg tabletTake 1 tablet by mouth once daily.Disp: 90 tabletRfl: 3 REVIEW OF SYSTEMS: Review of Systems Constitutional: Negative for fatigue and fever. HENT: Negative for hearing loss. Eyes: Negative for pain. Respiratory: Negative for cough and shortness of breath. Cardiovascular: Positive for palpitations. Negative for chest pain and leg swelling. Gastrointestinal: Negative for abdominal pain and blood in stool. Endocrine: Negative for cold intolerance. Genitourinary: Negative for hematuria. Musculoskeletal: Negative for back pain. Skin: Negative for pallor. Neurological: Negative for dizziness and syncope. Psychiatric/Behavioral: The patient is not nervous/anxious. PHYSICAL EXAMINATION: BP 122/78 (BP Site: Left Arm, BP Position: Sitting, BP Cuff Size: Regular Adult) Pulse (!) 59 Ht 5' 9 (1.753 m) Wt 185 lb (83.9 kg) SpO2 99% BMI 27.32 kg/m? BP w/Orthostatic Vitals Date and Time Orthostatic BP Orthostatic Pulse BP Pulse BP Position BP Site BP Cuff Size 06/19/23 1110 -- -- 122/78 59 Sitting Left Arm Regular Adult Physical Exam Constitutional: General: He is not in acute distress. Appearance: He is well-developed. HENT: Head: Normocephalic and atraumatic. Eyes: General: No scleral icterus. Conjunctiva/sclera: Conjunctivae normal. Pupils: Pupils are equal, round, and reactive to light. Cardiovascular: Rate and Rhythm: Normal rate and regular rhythm. Pulmonary: Effort: No respiratory distress. Breath sounds: No stridor. No wheezing or rales. Abdominal: Tenderness: There is no abdominal tenderness. Skin: General: Skin is warm and dry. Findings: No rash. Neurological: Mental Status: He is alert and oriented to person, place, and time. Psychiatric: Mood and Affect: Mood normal. I have personally reviewed the Electrocardiogram Assessment PLAN AND RECOMMENDATIONS: 62-year-old male with rec (more content not included)... Normal [facility] CNPZamzam 12-29-2022 [facility] Telephone ([employer]) SLAVA FERNANDEZ ([id number]) 1960 Date Time Provider Department 12/29/22 JORGE GUZMAN During your visit today, we recorded the following information about you: Carla Rivera, ADRIANNA 12/29/2022 9:00 AM Signed Jorge Guzman MD [facility] Clinical [place] Please inform Slava that echocardiogram shows normal heart and valvular function. Thanks, Jorge Guzman MD Called patient at [phone]. Reviewed Dr. Guzman's message. Patient verbalized understanding. Patient states he is in need of rescheduling with Dr. Queen at [facility] because it was scheduled for when he was on vacation. Layne Hernandez 12/29/2022 1:30 PM Signed 1st attempt, sent [facility] message. Amarilis Pierceno 01/02/2023 10:25 AM Signed Called patient and was able to verbally give him the number for [facility] that he needs to call to schedule. Allergies As of Date: 12/29/2022 Noted Allergy Reaction MORPHINE 06/23/2005 11 - Vomiting Date Reviewed: 11/23/2022 Reviewed by: Jorge Guzman MD - Fully Assessed Reason for Visit: Results [95] Prescriptions as of 01/02/2023 - metFORMIN (GLUCOPHAGE) 500 mg tablet Take 2 tablets by mouth twice daily with meals. - SITagliptin (JANUVIA) 100 mg tablet Take 1 tablet by mouth once daily. - simvastatin (ZOCOR) 40 mg tablet Take 1 tablet by mouth daily at bedtime. For cholesterols. - IBUPROFEN ORAL Take by mouth once daily. - cholecalciferol, vitamin D3, (VITAMIN D3 ORAL) Take 1 tablet by mouth once daily. - ascorbic acid, vitamin C, (VITAMIN C) 500 mg tablet Take 500 mg by mouth once daily. - blood sugar diagnostic (BLOOD GLUCOSE TEST) test strip Test blood sugar(s) 1 times daily. Dx: 250.00. Insulin: No - Lancets lancets Test blood sugar(s) 1 times daily. Dx: 250.00. Insulin: No - ferrous sulfate (IRON ORAL) Take by mouth. - Blood-Glucose Meter monitoring kit Daily check. For DM type II, Dx 250.00 Nora Bardales MD - MULTIVITS,CA,MIN/IRON/FA/LY PHONOGRAPH CARTRIDGE ASSEMBLER (CENTRUM ULTRA MEN'S ORAL) Take by mouth once daily. - Vitamin E 400 unit ORAL Tab Take by mouth once daily. - tamsulosin hcl(FLOMAX 0.4 MG 24 HR CAP) Take one(1) tablet at bedtime. Facility-Administered Medications as of 01/02/2023 - perflutren lipid microspheres 1.3 mL in NaCl (PF) 0.9% 10 mL injection (DEFINITY) - sodium chloride 0.9 % (flush) 10 mL (BD POSIFLUSH) Meds Comments as of 02/14/2018: Problem List As Of Date 12/29/2022 Noted Resolved BPH (benign prostatic hyperplasia) [N40.0] 09/07/2011 Hyperlipidemia [E78.5] 08/13/2012 Diabetes mellitus type 2, controlled, without c*08/18/2012 Chest pain [R07.9] 07/18/2016 Encounter Status:Closed by LAYNE HERNANDEZ on 12/29/22 [facility] J[facility] Telephone (UCWSTR) JIMSLAVA ([id number]) 1960 Date Time Provider Department 12/04/22 SHADIA MCADAMS [facility] During your visit today, we recorded the following information about you: Shadia Mcadams APRN.[employer] MANAGER 12/04/2022 8:13 AM Signed Patient was positive for COVID. Patient was negative for flu. Please instruct patient to quarantine for 5 days and wear a mask for another 5 days. If symptoms are worsening he should follow-up with his primary care provider thank you Catalino Gonzalez PA-C 12/04/2022 8:40 AM Signed Molnupiravir Eligibility and Patient Discussion [facility] Formulary Restriction Criteria: Adult outpatients 18 years and older with ALL of the following: [x] Patient has symptoms for 5 days or less [x] Not requiring hospitalization at any time for management of COVID-19 [x] Not requiring supplemental oxygen or a change in baseline supplemental oxygen [x] Not utilized for pre-exposure or post-exposure prophylaxis for prevention of COVID-19 [x] Patient is not or lactating [x] Meeting at least one of the criteria for high risk of progression to severe COVID-19: [] Age over 65 years [] Cancer [] Chronic kidney disease [] Chronic liver disease [] Chronic lung diseases, including cystic fibrosis [] Dementia or other neurological conditions [x] Diabetes (type 1 or type 2) [] Disabilities, including Down syndrome and neurodevelopmental disorders [] Heart conditions [] HIV infection [] Immunocompromised state [] Mental health conditions [] Medical related technological dependence (tracheostomy, gastrostomy, or positive pressure ventilation (not related to COVID) [] Overweight and obesity (BMI greater or equal to 25 for adults) [] Physical inactivity [] Sickle cell disease or thalassemia [x] Smoking, current or former [] Solid organ or blood stem cell transplant [] Stroke or cerebrovascular disease [] Substance use disorders [] Tuberculosis [] People from racial and ethnic minority groups I called and discussed positive COVID-19. He was interested in oral antivirals. Molnupiravir was sent to [facility] [employer] in [place]. Discussed quarantine and red flags to be seen in the ER. Patient agreeable. Criteria above are met: Yes Date of Symptom Onset: 12/01/22 Patient received COVID vaccine: No / status reviewed: Females: [] Patient is not currently and there is no possibility the patient could be (select one of the following): [] test does not need to be confirmed in patients who have undergone permanent sterilization, are currently using an intrauterine system or contraceptive implant, or in whom is not possible. [] Patients not meeting conditions above: assess whether the patient is based on the first day of the last menstrual period in individuals who have regular menstrual cycles, is using reliable method of contraception correctly and consistently or have had a negative test [] A test is recommended if the individual has irregular menstrual cycles, is unsure of the first day of the last menstrual period or is not using effective contraception correctly and consistently [] Patient is not currently . is not recommended during treatment and for four days after final dose of molnupiravir. [] Females have been advised to use a reliable method of contraception correctly and consistently for the duration of treatment and for four days after the last dose of molnupiravir Males: [] Sexually active male with partner(s) of childbearing potential has been advised to use a reliable method of contraception correctly and consistently for intercourse for the duration of treatment and for three months after the last dose of molnupiravir I have discussed the use of the investigational therapeutic, molnupiravir, for the treatment of mild to moderate COVID-19 and its use under Emergency Use Authorization with the patient. The patient was informed that molnupiravir is not an FDA approved drug and that it is authorized for use under this Emergency Use Authorization. The patient was also informed of the significant known benefits and potential risks of molnupiravir, and the extent to which such potential risks and benefits are unknown. The patient was informed that there is mandatory reporting of all medication errors and serious adverse events potentially related to molnupiravir treatment within 7 calendar days from the onset of the event and that events up to 28 days after completion of therapy need to be reported. The discussion included alternatives to receiving molnupiravir, including clinical trials, and potential the risks and benefits of those alternatives. The patient was provided electronically with the Fact Sheet for Patients, Parents and C (more content not included)... Normal [facility] CNOVon 12-03-2022 CNOV Office Visit (UCWSTR ) SLAVA FERNANDEZ ([id number]) 1960 M Date Time Provider Department 12/03/22 10:45 AM CATALINO GONZALEZ UCW[facility] During your visit today, we recorded the following information about you: Temperature Pulse Respiration Blood pressure 98.6 degrees 100/minute 18/minute 110/68 Weight 84.4 kg Catalino Gonzalez PA-C 12/03/2022 11:06 AM Signed Mucinex dm Tylenol otc We will call if positive for covid tomorrow. Catalino Gonzalez PA-C 12/03/2022 11:23 AM Signed This note was created using Power Innovationsriter. Subjective Slava Fernandez is a 62 year old male. HPI Presents with a chief complaint of cough, sore throat, fever over the past 2 days. No diarrhea or vomiting. He has had body aches and chills. He has not had COVID previously, currently not vaccinated. He is a type II diabetic. He had done a COVID test at work however this was 4 days before he was ill. 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 No chest pain or shortness of breath. Has tried some Tylenol [id number]. Temp yesterday was 100.8. he is a smoker. Review of Systems Constitutional: Positive for fatigue and fever. HENT: Positive for congestion, rhinorrhea and sore throat. Negative for ear pain. Respiratory: Positive for cough. Negative for shortness of breath and wheezing. Cardiovascular: Negative. Gastrointestinal: Negative. Genitourinary: Negative. Musculoskeletal: Positive for myalgias. Neurological: Positive for headaches. All other systems reviewed and are negative. PAST MEDICAL HISTORY Diagnosis Date Diabetes mellitus type 2, controlled, without complications (HCC) Frostbite of foot 1972 walked in a shinnecock. and hands Palpitations Current Outpatient Medications Medication Sig Dispense Refill metFORMIN (GLUCOPHAGE) 500 mg tablet Take 2 tablets by mouth twice daily with meals. 360 tablet 3 SITagliptin (JANUVIA) 100 mg tablet Take 1 tablet by mouth once daily. 90 tablet 3 simvastatin (ZOCOR) 40 mg tablet Take 1 tablet by mouth daily at bedtime. For cholesterols. 90 tablet 3 IBUPROFEN ORAL Take by mouth once daily. cholecalciferol, vitamin D3, (VITAMIN D3 ORAL) Take 1 tablet by mouth once daily. ascorbic acid, vitamin C, (VITAMIN C) 500 mg tablet Take 500 mg by mouth once daily. blood sugar diagnostic (BLOOD GLUCOSE TEST) test strip Test blood sugar(s) 1 times daily. Dx: 250.00. Insulin: No 100 Strip 3 Lancets lancets Test blood sugar(s) 1 times daily. Dx: 250.00. Insulin: No 100 Each 11 ferrous sulfate (IRON ORAL) Take by mouth. Blood-Glucose Meter monitoring kit Daily check. For DM type II, Dx 250.00 Nora Bardales MD 1 Each 0 MULTIVITS,CA,MIN/IRON/FA/LY PHONOGRAPH CARTRIDGE ASSEMBLER (CENTRUM ULTRA MEN'S ORAL) Take by mouth once daily. Vitamin E 400 unit ORAL Tab Take by mouth once daily. tamsulosin hcl(FLOMAX 0.4 MG 24 HR CAP) Take one(1) tablet at bedtime. 0 Current Facility-Administered Medications Medication Dose Route Frequency Provider Last Rate Last Admin perflutren lipid microspheres 1.3 mL in NaCl (PF) 0.9% 10 mL injection (DEFINITY) INTRAVENOUS DIRECTED PRN Jorge Guzman MD sodium chloride 0.9 % (flush) 10 mL (BD POSIFLUSH) 10 mL INTRAVENOUS DIRECTED PRN Jorge Guzman MD PAST SURGICAL HISTORY Procedure Laterality Date VASECTOMY UNI/BI SPX W/POSTOP SEMEN EXAMS FAMILY HISTORY Problem Relation Age of Onset Heart Father Diabetes Mother Cervical Cancer Paternal Grandfather Diabetes Sister Diabetes Sister Heart Brother irregular rhythm Social History Tobacco Use Smoking status: Every Day Packs/day: 1.25 Years: 30.00 Pack years: 37.50 Types: Cigarettes Smokeless tobacco: Never Tobacco comments: started age 25, quit in 2004 but started again around 07/18 Vaping Use Vaping Use: Never used Substance Use Topics Alcohol use: Yes Alcohol/week: 5.0 standard drinks Types: 1 Glasses of Wine (5oz), 1 Cans of Beer (12oz) per week Comment: occasional beer, wine Drug use: No Objective BP 110/68 Pulse 100 Temp 37 ?C (98.6 ?F) Resp 18 Wt 84.4 kg (186 lb) SpO2 100% BMI 27.47 kg/m? Physical Exam Vitals reviewed. Constitutional: Appearance: Normal appearance. HENT: Head: Normocephalic and atraumatic. Right Ear: Tympanic membrane, ear canal and external ear normal. Left Ear: Tympanic membrane, ear canal and external ear normal. Nose: Congestion present. Mouth/Throat: Mouth: Mucous membranes are moist. Pharynx: Uvula midline. Pharyngeal swelling and posterior oropharyngeal erythema present. No oropharyngeal exudate or uvula swelling. Tonsils: No tonsillar exudate or tonsillar abscesses. 2+ on the right. 2+ on the left. Cardiovascular: Rate and Rhythm: Normal rate and regular rhythm. Heart sounds: Normal heart sounds. Pulmonary: Effort: Pulmonary effort is normal. Breath sounds: Normal breath sounds. Musculoskeletal: Cervical back: Nec (more content not included)... Normal [facility] FLUABV + SARS-CoV-2 Pnl Resp RAFFY+prbon 12-03-2022 Influenza virus A and B RNA and SARS-CoV-2 (COVID-19) N gene panel RAFFY+probe (Resp) COVID 19 RESULT: Detected The method used is RT-PCR or an equivalent NAAT method. Reference Range (the expected result in uninfected individuals): Not detected INFLUENZA A PCR: Not detected INFLUENZA B PCR: Not detected Abnormal [facility] Comment on above: Performed By: #### U ACR #### [facility] CLIA [id number] [address] [place] [address] [place] STRE[place] A MOLECULAR (POC)on Procedural Control Valid [facility] Strep A (POCT) Negative Negative [facility] CNOVon 11-23-2022 CNOV Office Visit (CARDWW ) SLAVA FERNANDEZ ([id number]) 1960 M Date Time Provider Department 11/23/22 10:40 AM JORGE GUZMAN During your visit today, we recorded the following information about you: Pulse Blood pressure Weight Height 85/minute 125/75 86.2 kg 1.753 m Jorge Guzman MD 11/23/2022 11:16 AM Signed Cardiology consultation at the request of Carla Guzman CNP. A copy of this consultation note will be provided to the requesting physician by way of shared Medical record or letter to requesting physician via [place] mail. Chief Complaint: Patient presents with: Consult: Palpitations, Establishing with Cardiology History of Present Illness: Slava Fernandez is a 62 year old male with history of diabetes was referred by his primary care physician for an episode of SVT. Patient has been having intermittent episodes of palpitations once or twice a year. He saw Dr. Webster in May 2022. Patient said he had an episode where he felt his heart racing on in 2021. He said it lasted for about 3 to 4 minutes. It then went away on its own. He has had minor such episodes in the past. His next major episode was 13 September 2022. 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 As he was working in a [employer] the nurses came and checked on him and found that his heart rate was 190 bpm so they called the squad. They looked him up and confirmed the fast heart rate and rhythm to be SVT. They put him in the ambulance and gave him 1 dose of adenosine which converted him to normal rhythm. They took him to [facility] where a twelve-lead EKG done that confirmed normal sinus rhythm and he was discharged home. He saw his primary care physician who referred him to the brand inspector for further evaluation and treatment. Patient denies any chest pain shortness of breath orthopnea PND leg edema lightheadedness or syncope. He has been a chronic smoker and drinks up to 20 large cups of coffee every day. PAST MEDICAL HISTORY Diagnosis Date Diabetes mellitus type 2, controlled, without complications (HCC) Frostbite of foot 1971 walked in a [place]. and hands Palpitations PAST SURGICAL HISTORY Procedure Laterality Date VASECTOMY UNI/BI SPX W/POSTOP SEMEN EXAMS FAMILY HISTORY Problem Relation Age of Onset Heart Father Diabetes Mother Cervical Cancer Paternal Grandfather Diabetes Sister Diabetes Sister Heart Brother irregular rhythm Social History Tobacco Use Smoking status: Every Day Packs/day: 1.25 Years: 30.00 Pack years: 37.50 Types: Cigarettes Smokeless tobacco: Never Tobacco comments: started age 25, quit in 2004 but started again around 07/18 Vaping Use Vaping Use: Never used Substance Use Topics Alcohol use: Yes Alcohol/week: 5.0 standard drinks Types: 1 Glasses of Wine (5oz), 1 Cans of Beer (12oz) per week Comment: occasional beer, wine Drug use: No Current Outpatient Medications Medication Sig metFORMIN (GLUCOPHAGE) 500 mg tablet Take 2 tablets by mouth twice daily with meals. SITagliptin (JANUVIA) 100 mg tablet Take 1 tablet by mouth once daily. simvastatin (ZOCOR) 40 mg tablet Take 1 tablet by mouth daily at bedtime. For cholesterols. IBUPROFEN ORAL Take by mouth once daily. cholecalciferol, vitamin D3, (VITAMIN D3 ORAL) Take 1 tablet by mouth once daily. ascorbic acid, vitamin C, (VITAMIN C) 500 mg tablet Take 500 mg by mouth once daily. blood sugar diagnostic (BLOOD GLUCOSE TEST) test strip Test blood sugar(s) 1 times daily. Dx: 250.00. Insulin: No Lancets lancets Test blood sugar(s) 1 times daily. Dx: 250.00. Insulin: No ferrous sulfate (IRON ORAL) Take by mouth. Blood-Glucose Meter monitoring kit Daily check. For DM type II, Dx 250.00 Nora Bardales MD MULTIVITS,CA,MIN/IRON/FA/LY PHONOGRAPH CARTRIDGE ASSEMBLER (CENTRUM ULTRA MEN'S ORAL) Take by mouth once daily. Vitamin E 400 unit ORAL Tab Take by mouth once daily. tamsulosin hcl(FLOMAX 0.4 MG 24 HR CAP) Take one(1) tablet at bedtime. Current Facility-Administered Medications Medication Dose Route Frequency perflutren lipid microspheres 1.3 mL in NaCl (PF) 0.9% 10 mL injection (DEFINITY) INTRAVENOUS DIRECTED PRN sodium chloride 0.9 % (flush) 10 mL (BD POSIFLUSH) 10 mL INTRAVENOUS DIRECTED PRN ALLERGIES Allergen Reactions Morphine Vomiting Review of Systems: General: No weight loss, malaise, fevers, chills, or night sweats HEENT: Negative for epistaxis Neck: Negative for pain and significant neck swelling Respiratory: Negative for cough, shortness of breath at rest or on exertion, wheezing Cardiac: Negative history of chest pain on exertion, dyspnea on exertion, orthopnea, paroxysmal nocturnal dyspnea, lower extremity edema, presyncope, syncope, Gastrointestinal: Negative history of abdominal pain, nausea, vomiting, constipation, diarrhea, melena, or (more content not included)... Normal [facility] [id number] 11-23-2022 ECG01 Ventricular Rate : 8 7 BPM Atrial Rate : 87 BPM P-R Interval : 184 ms QRS Duration : 68 ms Q-T Interval : 334 ms QTC Calculation(Bazett) : 401 ms Calculated P [place] : 75 degrees Calculated R [place] : 64 degrees Calculated T [place] : 58 degrees NORMAL SINUS RHYTHM NORMAL ECG WHEN COMPARED WITH ECG OF 25-JAN-2022 15:10, CRITERIA FOR LEFT ATRIAL ENLARGEMENT ARE NO LONGER PRESENT Confirmed by MD GUZMAN VINAY ([id number]) on 11/23/2022 4:46:30 PM NAME : SLAVA FERNANDEZ PID : [id number] : 1960 Gender : Male Race : ORD : Procedure Date : Nov 23 2022 09:43:01 Edit Date : Nov 23 2022 16:46:32 Diagnosis: NORMAL SINUS RHYTHM NORMAL ECG WHEN COMPARED WITH ECG OF 25-JAN-2022 15:10, CRITERIA FOR LEFT ATRIAL ENLARGEMENT ARE NO LONGER PRESENT Confirmed by MD GUZMAN VINAY ([id number]) on 11/23/2022 4:46:30 PM Test Reason : Location : 6 : [facility] Overread By : MD GUZMAN VINAY Edited By : MD GUZMAN VINAY Referred By : , Acquired by : hk, Normal [facility] HEMOGLOBIN A1C (POC)on 07-20 HbA1c (Bld) [Mass fraction] 7.9 % Abnormal 4.2 - 5.6 % [facility] HEMOGLOBIN A1C (POC)on 08-02 -2022 HbA1c (Bld) [Mass fraction] 8.4 % Abnormal 4.2 - 5.6 % [facility] NOVEL CORONAVIRUS NASOPHARYN GEAL - [facility] SPECIMEN ONLYon 12-07-2020 SARS-COV-2 NOT DETECTED Normal NOT DETECTED [facility] Comment on above: Order Comment: Submi tter Name: [facility] Agent Suspected: SARS-COV-2 This test was performed using real time PCR and has been approved for the qualitative detection of SARS-CoV-2 nucleic acid. The test has been authorized by the FDA under an emergency use authorization for use by authorized laboratories. Result Comment: [facility] Negative results do not preclude SARS-CoV-2 infection and should not be used as the sole basis for treatment or other patient management decisions. Optimum specimen types and timing for peak viral levels during infections caused by SARS-CoV-2 has not been determined. The possibility of a false negative result should especially be considered if the patient's recent exposures or clinical presentation suggest that SARS-CoV-2 infection is probable, and diagnostic tests for other causes of illness (e.g., other respiratory illness) are negative. Collection of a new specimen and re-testing may be necessary if the patient is critically ill or clinically deteriorating. Performed By: #### L [id number] #### [facility] (DEFAULT) [address] [place] [address] NOVEL CORONAVIRUS NASOPHARYN GEAL - [facility] SPECIMEN ONLYon 11-23-2020 SARS-COV-2 NOT DETECTED Normal NOT DETECTED [facility] Comment on above: Order Comment: Submi tter Name: [facility] Agent Suspected: SARS-COV-2 This test was performed using real time PCR and has been approved for the qualitative detection of SARS-CoV-2 nucleic acid. The test has been authorized by the FDA under an emergency use authorization for use by authorized laboratories. Result Comment: [facility] Negative results do not preclude SARS-CoV-2 infection and should not be used as the sole basis for treatment or other patient management decisions. Optimum specimen types and timing for peak viral levels during infections caused by SARS-CoV-2 has not been determined. The possibility of a false negative result should especially be considered if the patient's recent exposures or clinical presentation suggest that SARS-CoV-2 infection is probable, and diagnostic tests for other causes of illness (e.g., other respiratory illness) are negative. Collection of a new specimen and re-testing may be necessary if the patient is critically ill or clinically deteriorating. Performed By: #### L [id number] #### [facility] (DEFAULT) [address] [address] NOVEL CORONAVIRUS NASOPHARYN GEAL - [facility] SPECIMEN ONLYon 11-09-2020 SARS-COV-2 NOT DETECTED Normal NOT DETECTED [facility] Comment on above: Order Comment: Submi tter Name: [facility] Agent Suspected: SARS-COV-2 This test was performed using real time PCR and has been approved for the qualitative detection of SARS-CoV-2 nucleic acid. The test has been authorized by the FDA under an emergency use authorization for use by authorized laboratories. Result Comment: Nega tive results do not preclude SARS-CoV-2 infection and should not be used as the sole basis for treatment or other patient management decisions. Optimum specimen types and timing for peak viral levels during infections caused by SARS-CoV-2 has not been determined. The possibility of a false negative result should especially be considered if the patient's recent exposures or clinical presentation suggest that SARS-CoV-2 infection is probable, and diagnostic tests for other causes of illness (e.g., other respiratory illness) are negative. Collection of a new specimen and re-testing may be necessary if the patient is critically ill or clinically deteriorating. Performed By: #### L [id number] #### [facility] (DEFAULT) [address] [address] NOVEL CORONAVIRUS NASOPHARYN GEAL - [facility] SPECIMEN ONLYon 10-26-2020 SARS-COV-2 NOT DETECTED Normal NOT DETECTED [facility] Comment on above: Order Comment: Submi tter Name: [facility] Agent Suspected: SARS-COV-2 This test was performed using real time PCR and has been approved for the qualitative detection of SARS-CoV-2 nucleic acid. The test has been authorized by the FDA under an emergency use authorization for use by authorized laboratories. Result Comment: Nega tive results do not preclude SARS-CoV-2 infection and should not be used as the sole basis for treatment or other patient management decisions. Optimum specimen types and timing for peak viral levels during infections caused by SARS-CoV-2 has not been determined. The possibility of a false negative result should especially be considered if the patient's recent exposures or clinical presentation suggest that SARS-CoV-2 infection is probable, and diagnostic tests for other causes of illness (e.g., other respiratory illness) are negative. Collection of a new specimen and re-testing may be necessary if the patient is critically ill or clinically deteriorating. Performed By: #### L [id number] #### [facility] (DEFAULT) [address] [place] [id number] NOVEL CORONAVIRUS NASOPHARYN GEAL - [facility] SPECIMEN ONLYon 10-13-2020 SARS-COV-2 NOT DETECTED Normal NOT DETECTED [facility] Comment on above: Order Comment: Submi tter Name: [facility] Agent Suspected: SARS-COV-2 This test was performed using real time PCR and has been approved for the qualitative detection of SARS-CoV-2 nucleic acid. The test has been authorized by the FDA under an emergency use authorization for use by authorized laboratories. Result Comment: Nega tive results do not preclude SARS-CoV-2 infection and should not be used as the sole basis for treatment or other patient management decisions. Optimum specimen types and timing for peak viral levels during infections caused by SARS-CoV-2 has not been determined. The possibility of a false negative result should especially be considered if the patient's recent exposures or clinical presentation suggest that SARS-CoV-2 infection is probable, and diagnostic tests for other causes of illness (e.g., other respiratory illness) are negative. Collection of a new specimen and re-testing may be necessary if the patient is critically ill or clinically deteriorating. Performed By: #### L [id number] #### [facility] (DEFAULT) [address] [place] [id number] NOVEL CORONAVIRUS NASOPHARYN GEAL - [facility] SPECIMEN ONLYon 09-29-2020 SARS-COV-2 NOT DETECTED Normal NOT DETECTED [facility] Comment on above: Order Comment: Submi tter Name: [facility] Agent Suspected: SARS-COV-2 This test was performed using real time PCR and has been approved for the qualitative detection of SARS-CoV-2 nucleic acid. The test has been authorized by the FDA under an emergency use authorization for use by authorized laboratories. Result Comment: Nega tive results do not preclude SARS-CoV-2 infection and should not be used as the sole basis for treatment or other patient management decisions. Optimum specimen types and timing for peak viral levels during infections caused by SARS-CoV-2 has not been determined. The possibility of a false negative result should especially be considered if the patient's recent exposures or clinical presentation suggest that SARS-CoV-2 infection is probable, and diagnostic tests for other causes of illness (e.g., other respiratory illness) are negative. Collection of a new specimen and re-testing may be necessary if the patient is critically ill or clinically deteriorating. Performed By: #### L [id number] #### [facility] (DEFAULT) [address] [place] [address] NOVEL CORONAVIRUS NASOPHARYN GEAL - [facility] SPECIMEN ONLYon 09-14-2020 SARS-COV-2 NOT DETECTED Normal NOT DETECTED [facility] Comment on above: Order Comment: Submi tter Name: [facility] Agent Suspected: SARS-COV-2 This test was performed using real time PCR and has been approved for the qualitative detection of SARS-CoV-2 nucleic acid. The test has been authorized by the FDA under an emergency use authorization for use by authorized laboratories. Result Comment: Nega tive results do not preclude SARS-CoV-2 infection and should not be used as the sole basis for treatment or other patient management decisions. Optimum specimen types and timing for peak viral levels during infections caused by SARS-CoV-2 has not been determined. The possibility of a false negative result should especially be considered if the patient's recent exposures or clinical presentation suggest that SARS-CoV-2 infection is probable, and diagnostic tests for other causes of illness (e.g., other respiratory illness) are negative. Collection of a new specimen and re-testing may be necessary if the patient is critically ill or clinically deteriorating. Performed By: #### L [id number] #### [facility] (DEFAULT) [address] [place] [address] NOVEL CORONAVIRUS NASOPHARYN GEAL - [facility] SPECIMEN ONLYon 08-31-2020 SARS-COV-2 NOT DETECTED Normal NOT DETECTED [facility] Comment on above: Order Comment: Submi tter Name: [facility] Agent Suspected: SARS-COV-2 This test was performed using real time PCR for the qualitative detection of SARS-CoV-2 nucleic acid. This test was developed and its performance characteristics determined by [facility]. It has not been cleared or approved by the FDA. The laboratory is regulated under CLIA as qualified to perform high-complexity testing. This test is used for clinical purposes. It should not be regarded as investigational or for research. Result Comment: Nega tive results do not preclude SARS-CoV-2 infection and should not be used as the sole basis for treatment or other patient management decisions. Optimum specimen types and timing for peak viral levels during infections caused by SARS-CoV-2 has not been determined. The possibility of a false negative result should especially be considered if the patient's recent exposures or clinical presentation suggest that SARS-CoV-2 infection is probable, and diagnostic tests for other causes of illness (e.g., other respiratory illness) are negative. Collection of a new specimen and re-testing may be necessary if the patient is critically ill or clinically deteriorating. Performed By: #### L [id number] #### [facility] (DEFAULT) [address] [place] [address] NOVEL CORONAVIRUS NASOPHARYN GEAL - [facility] SPECIMEN ONLYon 08-24-2020 SARS-COV-2 NOT DETECTED Normal NOT DETECTED [facility] Comment on above: Order Comment: Submi tter Name: [facility] Agent Suspected: SARS-COV-2 This test was performed using real time PCR for the qualitative detection of SARS-CoV-2 nucleic acid. The test has been reviewed by the FDA and given emergency use authorization. This test was developed and its performance characteristics determined by [facility]. This test is used for clinical purposes. It should not be regarded as investigational or for research. Result Comment: Nega tive results do not preclude SARS-CoV-2 infection and should not be used as the sole basis for treatment or other patient management decisions. Optimum specimen types and timing for peak viral levels during infections caused by SARS-CoV-2 has not been determined. The possibility of a false negative result should especially be considered if the patient's recent exposures or clinical presentation suggest that SARS-CoV-2 infection is probable, and diagnostic tests for other causes of illness (e.g., other respiratory illness) are negative. Collection of a new specimen and re-testing may be necessary if the patient is critically ill or clinically deteriorating. Performed By: #### L [id number] #### [facility] (DEFAULT) [address] [address] NOVEL CORONAVIRUS NASOPHARYN GEAL - [facility] SPECIMEN ONLYon 08-10-2020 SARS-COV-2 NOT DETECTED Normal NOT DETECTED [facility] Comment on above: Order Comment: Submi tter Name: [facility] Agent Suspected: SARS-COV-2 This test was performed using real time PCR and has been approved for the qualitative detection of SARS-CoV-2 nucleic acid. The test has been authorized by the FDA under an emergency use authorization for use by authorized laboratories. Result Comment: Nega tive results do not preclude SARS-CoV-2 infection and should not be used as the sole basis for treatment or other patient management decisions. Optimum specimen types and timing for peak viral levels during infections caused by SARS-CoV-2 has not been determined. The possibility of a false negative result should especially be considered if the patient's recent exposures or clinical presentation suggest that SARS-CoV-2 infection is probable, and diagnostic tests for other causes of illness (e.g., other respiratory illness) are negative. Collection of a new specimen and re-testing may be necessary if the patient is critically ill or clinically deteriorating. Performed By: #### L [id number] #### [facility] (DEFAULT) [address] [address] NOVEL CORONAVIRUS NASOPHARYN GEAL - [facility] SPECIMEN ONLYon 07-27-2020 SARS-COV-2 NOT DETECTED Normal NOT DETECTED [facility] Comment on above: Order Comment: Submi tter Name: [facility] Agent Suspected: SARS-COV-2 This test was performed using real time PCR and has been approved for the qualitative detection of SARS-CoV-2 nucleic acid. The test has been authorized by the FDA under an emergency use authorization for use by authorized laboratories. Result Comment: Nega tive results do not preclude SARS-CoV-2 infection and should not be used as the sole basis for treatment or other patient management decisions. Optimum specimen types and timing for peak viral levels during infections caused by SARS-CoV-2 has not been determined. The possibility of a false negative result should especially be considered if the patient's recent exposures or clinical presentation suggest that SARS-CoV-2 infection is probable, and diagnostic tests for other causes of illness (e.g., other respiratory illness) are negative. Collection of a new specimen and re-testing may be necessary if the patient is critically ill or clinically deteriorating. Performed By: #### L [id number] #### [facility] (DEFAULT) [address] [place] [address] NOVEL CORONAVIRUS NASOPHARYN GEAL - [facility] SPECIMEN ONLYon 07-13-2020 SARS-COV-2 NOT DETECTED Normal NOT DETECTED [facility] Comment on above: Order Comment: Submi tter Name: [facility] Agent Suspected: SARS-COV-2 This test was performed using real time PCR and has been approved for the qualitative detection of SARS-CoV-2 nucleic acid. The test has been authorized by the FDA under an emergency use authorization for use by authorized laboratories. Result Comment: Nega tive results do not preclude SARS-CoV-2 infection and should not be used as the sole basis for treatment or other patient management decisions. Optimum specimen types and timing for peak viral levels during infections caused by SARS-CoV-2 has not been determined. The possibility of a false negative result should especially be considered if the patient's recent exposures or clinical presentation suggest that SARS-CoV-2 infection is probable, and diagnostic tests for other causes of illness (e.g., other respiratory illness) are negative. Collection of a new specimen and re-testing may be necessary if the patient is critically ill or clinically deteriorating. Performed By: #### L [id number] #### [facility] (DEFAULT) [address] [place] [id number] NOVEL CORONAVIRUS NASOPHARYN GEAL - [facility] SPECIMEN ONLYon 04-20-2020 SARS-COV-2 NOT DETECTED Normal NOT DETECTED [facility] Comment on above: Order Comment: Submi tter Name: [facility] Agent Suspected: SARS-COV-2 This test was performed using real time PCR and has been approved for the qualitative detection of SARS-CoV-2 nucleic acid. The test has been authorized by the FDA under an emergency use authorization for use by authorized laboratories. Result Comment: Nega tive results do not preclude SARS-CoV-2 infection and should not be used as the sole basis for treatment or other patient management decisions. Optimum specimen types and timing for peak viral levels during infections caused by SARS-CoV-2 has not been determined. The possibility of a false negative result should especially be considered if the patient's recent exposures or clinical presentation suggest that SARS-CoV-2 infection is probable, and diagnostic tests for other causes of illness (e.g., other respiratory illness) are negative. Collection of a new specimen and re-testing may be necessary if the patient is critically ill or clinically deteriorating. Performed By: #### L [id number] #### [facility] ([facility]) [address] [place] [address] Vital Signs Date Time Vital Sign Value Performing Clinician Gopi melendez 10-19-2023 10:18-0500 Body height 175.3 cm Yenifer Tin PAPER CUTTING MACHINE OPERATOR.OPERATORS SCHOOL MANAGER Work Phone: [facility] 10-19-2023 10:18-0500 Body weight 82 kg Yenifer Tin PAPER CUTTING MACHINE OPERATOR.OPERATORS SCHOOL MANAGER Work Phone: [facility] 10-19-2023 10:18-0500 Diastolic blood pressure 73 mm[Hg] Yenifer Tin PAPER CUTTING MACHINE OPERATOR.OPERATORS SCHOOL MANAGER Work Phone: [facility] 10-19-2023 10:18-0500 Heart rate 82 /min Yenifer Tin PAPER CUTTING MACHINE OPERATOR.OPERATORS SCHOOL MANAGER Work Phone: [facility] 10-19-2023 10:18-0500 Systolic blood pressure 111 mm[Hg] Yenifer Tin PAPER CUTTING MACHINE OPERATOR.OPERATORS SCHOOL MANAGER Work Phone: [facility] 12-03-2022 10:37-0400 Body temperature 98.6 [degF] Catalino Gonzalez PA-C Work Phone: [facility] 12-03-2022 10:37-0400 Body weight 84.37 kg Catalino Athy PA-C Work Phone: [facility] 12-03-2022 10:37-0400 Diastolic blood pressure 68 mm[Hg] Catalino Athy PA-C Work Phone: [facility] 12-03-2022 10:37-0400 Heart rate 100 /min Catalino Athy PA-C Work Phone: [facility] 12-03-2022 10:37-0400 Respiratory rate 18 /min Catalino Athy PA-C Work Phone: [facility] 12-03-2022 10:37-0400 SaO2% (BldA) [Mass fraction] 100 % Catalino Athy PA-C Work Phone: [facility] 12-03-2022 10:37-0400 Systolic blood pressure 110 mm[Hg] Catalino Athy PA-C Work Phone: [facility] 11-23-2022 10:38-0400 Body height 175.3 cm Jorge Guzman MD Work Phone: [facility] 11-23-2022 10:38-0400 Body weight 86.18 kg Jorge Guzman MD Work Phone: [facility] 11-23-2022 10:38-0400 Diastolic blood pressure 75 mm[Hg] Jorge Guzman MD Work Phone: [facility] 11-23-2022 10:38-0400 Heart rate 85 /min Jorge Guzman MD Work Phone: [facility] 11-23-2022 10:38-0400 SaO2% (BldA) [Mass fraction] 98 % Jorge Guzman MD Work Phone: [facility] 11-23-2022 10:38-0400 Systolic blood pressure 125 mm[Hg] Jorge Guzman MD Work Phone: [facility] 09-14-2022 16:13-0500 Body height 175.3 cm Carla Guzman APRN.CNP Work Phone: [facility] 09-14-2022 16:13-0500 Body temperature 97.9 [degF] Carla Thomas PAPER CUTTING MACHINE OPERATOR.OPERATORS SCHOOL MANAGER Work Phone: [facility] 09-14-2022 16:13-0500 Body weight 85.23 kg Crala Thomas PAPER CUTTING MACHINE OPERATOR.OPERATORS SCHOOL MANAGER Work Phone: [facility] 09-14-2022 16:13-0500 Diastolic blood pressure 75 mm[Hg] Carla Thomas PAPER CUTTING MACHINE OPERATOR.OPERATORS SCHOOL MANAGER Work Phone: [facility] 09-14-2022 16:13-0500 Heart rate 66 /min Carla Thomas PAPER CUTTING MACHINE OPERATOR.OPERATORS SCHOOL MANAGER Work Phone: [facility] 09-14-2022 16:13-0500 SaO2% (BldA) [Mass fraction] 98 % Carla Thomas PAPER CUTTING MACHINE OPERATOR.OPERATORS SCHOOL MANAGER Work Phone: [facility] 09-14-2022 16:13-0500 Systolic blood pressure 115 mm[Hg] Carla Thomas PAPER CUTTING MACHINE OPERATOR.OPERATORS SCHOOL MANAGER Work Phone: [facility] 07-20-2022 15:07-0500 Body height 175.3 cm Yenifer Tin PAPER CUTTING MACHINE OPERATOR.OPERATORS SCHOOL MANAGER Work Phone: [facility] 07-20-2022 15:07-0500 Body weight 83.46 kg Yenifer Tin PAPER CUTTING MACHINE OPERATOR.OPERATORS SCHOOL MANAGER Work Phone: [facility] 07-20-2022 15:07-0500 Diastolic blood pressure 65 mm[Hg] Yenifer Tin PAPER CUTTING MACHINE OPERATOR.OPERATORS SCHOOL MANAGER Work Phone: [facility] 07-20-2022 15:07-0500 Heart rate 63 /min Yenifer Tin PAPER CUTTING MACHINE OPERATOR.OPERATORS SCHOOL MANAGER Work Phone: [facility] 07-20-2022 15:07-0500 Systolic blood pressure 117 mm[Hg] Yenifer Tin PAPER CUTTING MACHINE OPERATOR.OPERATORS SCHOOL MANAGER Work Phone: [facility] 06-03-2022 13:07-0400 Body height 175.3 cm Sean Webster MD Work Phone: [facility] 06-03-2022 13:07-0400 Body weight 82.56 kg Sean Webster MD Work Phone: [facility] 06-03-2022 13:07-0400 Diastolic blood pressure 80 mm[Hg] Sean Webster MD Work Phone: [facility] 06-03-2022 13:07-0400 Heart rate 77 /min Sean Webster MD Work Phone: [facility] 06-03-2022 13:07-0400 Respiratory rate 18 /min Sean Webster MD Work Phone: [facility] 06-03-2022 13:07-0400 SaO2% (BldA) [Mass fraction] 98 % Sean Webster MD Work Phone: [facility] 06-03-2022 13:07-0400 Systolic blood pressure 120 mm[Hg] Sean Webster MD Work Phone: [facility] 04-12-2022 15:39-0400 Body height 175.3 cm Nora Bardales MD Work Phone: [facility] 04-12-2022 15:39-0400 Body weight 83.01 kg Nora Bardales MD Work Phone: [facility] 04-12-2022 15:39-0400 Diastolic blood pressure 65 mm[Hg] Nora Bardales MD Work Phone: [facility] 04-12-2022 15:39-0400 Heart rate 79 /min Nora Bardales MD Work Phone: [facility] 04-12-2022 15:39-0400 SaO2% (BldA) [Mass fraction] 99 % Nora Bardales MD Work Phone: [facility] 04-12-2022 15:39-0400 Systolic blood pressure 96 mm[Hg] Nora Bardales MD Work Phone: [facility] 01-25-2022 16:04-0400 Body height 175.3 cm Vidya Knott PA-C Work Phone: [facility] 01-25-2022 16:04-0400 Body temperature 98.49 [degF] Vidya Nikos PA-C Work Phone: [facility] 01-25-2022 16:04-0400 Body weight 82.56 kg Vidya Knott PA-C Work Phone: [facility]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 Level of Service documented in this encounter [facility] 10-19-2023 History of Present illness Narrative This note was created using [employer]. Subjective Slava Fernandez is a 62 year old male. Patient here for well adult physical. DMII: hasn't checked his blood sugar in over a year. Sometimes missing doses of metformin, Januvia and statin. Doesn't always eat dinner so will miss some doses of medication. Overdue for eye exam, needs to schedule. Patient reports that he usually eats peanut butter crackers for breakfast and lunch, ham and cheese for dinner, doesn't eat much, not hungry. Smoking: currently smoking 1 PPD, not interested in quitting. The history is provided by the patient. Review of Systems Constitutional: Negative for fatigue. HENT: Negative for hearing loss. Eyes: Negative for visual disturbance. Respiratory: Negative for shortness of breath. Cardiovascular: Negative for chest pain and palpitations. Gastrointestinal: Negative for abdominal pain, constipation, diarrhea, nausea and vomiting. Endocrine: Negative for polydipsia and polyuria. Genitourinary: Negative for dysuria, frequency and urgency. Skin: Negative for color change. Allergic/Immunologic: Positive for immunocompromised state. Neurological: Negative for dizziness, numbness and headaches. Hematological: Does not bruise/bleed easily. Psychiatric/Behavioral: Negative for dysphoric mood and sleep disturbance. The patient is not nervous/anxious. PAST MEDICAL HISTORY Diagnosis Date Diabetes mellitus type 2, controlled, without complications (HCC) Frostbite of foot 1972 walked in a shinnecock. and hands Palpitations PAST SURGICAL HISTORY Procedure Laterality Date VASECTOMY UNI/BI SPX W/POSTOP SEMEN EXAMS ALLERGIES Morphine MEDICATIONS metFORMIN (GLUCOPHAGE) 500 mg tablet^Take 2 tablets by mouth twice daily with meals.^Disp: 360 tablet^Rfl: 3 SITagliptin (JANUVIA) 100 mg tablet^Take 1 tablet by mouth once daily.^Disp: 90 tablet^Rfl: 3 simvastatin (ZOCOR) 40 mg tablet^Take 1 tablet by mouth daily at bedtime. For cholesterols.^Disp: 90 tablet^Rfl: 3 IBUPROFEN ORAL^Take by mouth once daily.^Disp: ^Rfl: cholecalciferol, vitamin D3, (VITAMIN D3 ORAL)^Take 1 tablet by mouth once daily.^Disp: ^Rfl: ascorbic acid, vitamin C, (VITAMIN C) 500 mg tablet^Take 500 mg by mouth once daily.^Disp: ^Rfl: ferrous sulfate (IRON ORAL)^Take by mouth.^Disp: ^Rfl: MULTIVITS,CA,MIN/IRON/FA/LYCOP (CENTRUM ULTRA MEN'S ORAL)^Take by mouth once daily.^Disp: ^Rfl: Vitamin E 400 unit ORAL Tab^Take by mouth once daily.^Disp: ^Rfl: tamsulosin hcl(FLOMAX 0.4 MG 24 HR CAP)^Take one(1) tablet at bedtime.^Disp: ^Rfl: 0 Blood-Glucose Meter monitoring kit^Glucose Meter of Choice - Kit - Dx: Type 2 DM - Uncontrolled ^Disp: 1 Each^Rfl: 0 Lancets lancets^Test blood sugar(s) 2 times daily. Dx: Type 2 DM - Uncontrolled Insulin: No^Disp: 100 Each^Rfl: 11 blood sugar diagnostic (BLOOD GLUCOSE TEST) test strip^Test blood sugar(s) 2 times daily. Dx: Type 2 DM - Uncontrolled Insulin: No^Disp: 50 Strip^Rfl: 11 FAMILY HISTORY Problem Relation Age of Onset Heart Father Diabetes Mother Cervical Cancer Paternal Grandfather Diabetes Sister Diabetes Sister Heart Brother irregular rhythm Social History Tobacco Use Smoking status: Every Day Packs/day: 1.25 Years: 30.00 Additional pack years: 0.00 Total pack years: 37.50 Types: Cigarettes Smokeless tobacco: Never Tobacco comments: started age 25, quit in 2004 but started again around 07/18 Vaping Use Vaping Use: Never used Substance Use Topics Alcohol use: Yes Alcohol/week: 2.0 standard drinks of alcohol Types: 1 Glasses of Wine (5oz), 1 Cans of Beer (12oz) per week Comment: occasional beer, wine Drug use: No Objective BP 111/73 Pulse 82 Ht 175.3 cm (5' 9.02 ) Wt 82 kg (180 lb 12.4 oz) BMI 26.68 kg/m Physical Exam Vitals and nursing note reviewed. Constitutional: Appearance: He is not ill-appearing. HENT: Head: Normocephalic. Right Ear: Tympanic membrane and ear canal normal. Left Ear: Tympanic membrane and ear canal normal. Mouth/Throat: Mouth: Mucous membranes are moist. Eyes: Extraocular Movements: Extraocular movements intact. Conjunctiva/sclera: Conjunctivae normal. Pupils: Pupils are equal, round, and reactive to light. Neck: Thyroid: No thyroid mass or thyromegaly. Cardiovascular: Rate and Rhythm: Normal rate and regular rhythm. Pulses: Normal pulses. Heart sounds: Normal heart sounds. Pulmonary: Effort: Pulmonary effort is normal. Breath sounds: Normal breath sounds and air entry. Abdominal: General: Abdomen is flat. Bowel sounds are normal. Palpations: Abdomen is soft. Musculoskeletal: General: Normal range of motion. Cervical back: Normal range of motion. Right lower leg: No edema. Left lower leg: No edema. Lymphadenopathy: Cervical: No cervical adenopathy. Skin: General: Skin is warm and dry. Capillary Refill: Capillary refill takes less than 2 seconds. Neurological: Mental Status: He is alert and oriented to person, place, and time. Cranial Nerves: No cranial nerve deficit. Gait: Gait normal. Psychiatric: Mood and Affect: Mood normal. Behavior: Behavior normal. Thought Content: Thought content normal. Assessment and Plan ASSESSMENT/PLAN: 1. Well adult exam - ICD9: V70.0, ICD10: Z00.00 (primary diagnosis) - Counseled on healthy diet and regular exercise - Colorectal cancer screening recommended - agrees to iFOBT testing - Lung cancer screening recommended - Smoking cessation encouraged; discussed risks to health and quitting strategies. Patient is not ready to quit - Follow up for annual exam in one year 2. Uncontrolled type 2 diabetes mellitus with hyperglycemia (HCC) - ICD9: 250.02, ICD10: E11.65 - Worsening control - Continue current medications, take every day as prescribed with no missed doses - Blood glucose monitoring on a twice daily schedule (fasting and 2 hours after largest meal), bring log back to follow-up visit - Counseled on healthy diet and regular exercise - Follow up in 6 weeks, sooner should any other issues arise. - HB A1C B/O - CBC - COMP METABOLIC PANEL - ALBUMIN/CREAT RATIO RND UR 3. Mixed hyperlipidemia - ICD9: 272.2, ICD10: E78. Recheck lipid panel, has been missing doses of medication. - LIPID PANEL BASIC - SIMVASTATIN 40 MG TABLET 4. Continuous tobacco abuse - ICD9: 305.1, ICD10: Z72.0 - Cessation encouraged. 5. Screening for colon cancer - ICD9: V76.51, ICD10: Z12.11 Agreeable to FOBT. - FECAL OCCULT BLOOD TEST 6. Screening for malignant neoplasm of lung declined by patient - ICD9: V64.2, ICD10: Z53.20 Patient declined at this time. 7. Vaccination refused by patient - ICD9: V64.06, ICD10: Z28.21 Patient declines all recommended vaccines. 8. Depression screening - ICD9: V79.0, ICD10: Z13.31 negative Yenifer Carrasco APRN.OPERATORS SCHOOL MANAGER documented in this encounter [facility] 06-19-2023 Note HNO ID: [id number] Author: Mayo Queen MD Service: ? Author Type: Physician Type: Progress Notes Filed: 06/19/2023 11:51 AM Note Text: [facility] [place] [facility] SECTION OF CARDIAC PACING and ELECTROPHYSIOLOGY OUTPATIENT VISIT DATE June 19, 2023 OUTPATIENT VISIT TYPE NEW PRIMARY CARE PHYSICIAN: Nora Bardales [address] [place] [address] [place] [address] REFERRING PHYSICIAN: Jorge Guzman MD. HISTORY OF PRESENT ILLNESS: 62-year-old male with history of dyslipidemia and diabetes who has been experiencing brief episodes of palpitation that was self-limited and infrequent for a number of years. Last fall had had a considerably longer episode when he was feeling palpitation, but no dizziness or chest pain. His episode terminated spontaneously as well. In early 2022 he had an episode of loss for about 40 minutes. He presented to the emergency room, was found to be in a regular narrow complex tachycardia with ventricular rate of approximately 190 bpm that did not respond to vagal maneuvers and was terminated with adenosine injection. The patient was referred to Dr. Guzman who arranged for an echocardiogram and subsequent EPS referral. ECG today shows sinus bradycardia 54 bpm with normal intervals and no obvious preexcitation. Echo showed EF of 65%, no significant LVH or valvular issues. PAST MEDICAL HISTORY Diagnosis Date Diabetes mellitus type 2, controlled, without complications (HCC) Frostbite of foot 1972 walked in a shinnecock. and hands Palpitations MEDICATIONS: metFORMIN (GLUCOPHAGE) 500 mg tabletTake 2 tablets by mouth twice daily with meals.Disp: 360 tabletRfl: 3 simvastatin (ZOCOR) 40 mg tabletTake 1 tablet by mouth daily at bedtime. For cholesterols.Disp: 90 tabletRfl: 3 IBUPROFEN ORALTake by mouth once daily.Disp: Rfl: cholecalciferol, vitamin D3, (VITAMIN D3 ORAL)Take 1 tablet by mouth once daily.Disp: Rfl: ascorbic acid, vitamin C, (VITAMIN C) 500 mg tabletTake 500 mg by mouth once daily.Disp: Rfl: blood sugar diagnostic (BLOOD GLUCOSE TEST) test stripTest blood sugar(s) 1 times daily. Dx: 250.00. Insulin: NoDisp: 100 StripRfl: 3 Lancets lancetsTest blood sugar(s) 1 times daily. Dx: 250.00. Insulin: NoDisp: 100 EachRfl: 11 ferrous sulfate (IRON ORAL)Take by mouth.Disp: Rfl: Blood-Glucose Meter monitoring kitDaily check. For DM type II, Dx 250.00 Nora Bardales MD Disp: 1 EachRfl: 0 MULTIVITS,CA,MIN/IRON/FA/LYCOP (CENTRUM ULTRA MEN'S ORAL)Take by mouth once daily.Disp: Rfl: Vitamin E 400 unit ORAL TabTake by mouth once daily.Disp: Rfl: tamsulosin hcl(FLOMAX 0.4 MG 24 HR CAP)Take one(1) tablet at bedtime.Disp: Rfl: 0 SITagliptin (JANUVIA) 100 mg tabletTake 1 tablet by mouth once daily.Disp: 90 tabletRfl: 3 REVIEW OF SYSTEMS: Review of Systems Constitutional: Negative for fatigue and fever. HENT: Negative for hearing loss. Eyes: Negative for pain. Respiratory: Negative for cough and shortness of breath. Cardiovascular: Positive for palpitations. Negative for chest pain and leg swelling. Gastrointestinal: Negative for abdominal pain and blood in stool. Endocrine: Negative for cold intolerance. Genitourinary: Negative for hematuria. Musculoskeletal: Negative for back pain. Skin: Negative for pallor. Neurological: Negative for dizziness and syncope. Psychiatric/Behavioral: The patient is not nervous/anxious. PHYSICAL EXAMINATION: BP 122/78 (BP Site: Left Arm, BP Position: Sitting, BP Cuff Size: Regular Adult) Pulse (!) 59 Ht 5' 9 (1.753 m) Wt 185 lb (83.9 kg) SpO2 99% BMI 27.32 kg/m? BP w/Orthostatic Vitals Date and Time Orthostatic BP Orthostatic Pulse BP Pulse BP Position BP Site BP Cuff Size 06/19/23 1110 -- -- 122/78 59 Sitting Left Arm Regular Adult Physical Exam Constitutional: General: He is not in acute distress. Appearance: He is well-developed. HENT: Head: Normocephalic and atraumatic. Eyes: General: No scleral icterus. Conjunctiva/sclera: Conjunctivae normal. Pupils: Pupils are equal, round, and reactive to light. Cardiovascular: Rate and Rhythm: Normal rate and regular rhythm. Pulmonary: Effort: No respiratory distress. Breath sounds: No stridor. No wheezing or rales. Abdominal: Tenderness: There is no abdominal tenderness. Skin: General: Skin is warm and dry. Findings: No rash. Neurological: Mental Status: He is alert and oriented to person, place, and time. Psychiatric: Mood and Affect: Mood normal. I have personally reviewed the Electrocardiogram Assessment PLAN AND RECOMMENDATIONS: 62-year-old male with recurrent adenosine responsive narrow complex tachycardia. We discussed pathophysiology of SVT, as well as various approaches to its treatment. Beta-german therapy can be considered, but he Slava's baseline heart rate is in the 50s potentially limiting beta-german dose. We discusse (more content not included)... [facility] 12-29-2022 Miscellaneous Notes 1st attempt, sent [facility] message. Images from the original note were not included. MD Marcio Alston [facility] Clinical [place] Please inform Slava that echocardiogram shows normal heart and valvular function. Thanks, Jorge Guzman MD Called patient at [phone]. Reviewed Dr. Guzman's message. Patient verbalized understanding. Patient states he is in need of rescheduling with Dr. Queen at [facility] because it was scheduled for when he was on vacation. documented in this encounter [facility] 12-03-2022 Note HNO ID: [id number] Author: Catalino Gonzalez PA-C Service: ? Author Type: Physician Operators School Manager Type: Progress Notes Filed: 12/03/2022 11:23 AM Note Text: This note was created using InToTally. Subjective Slava Fernandez is a 62 year old male. HPI Presents with a chief complaint of cough, sore throat, fever over the past 2 days. No diarrhea or vomiting. He has had body aches and chills. He has not had COVID previously, currently not vaccinated. He is a type II diabetic. He had done a COVID test at work however this was 4 days before he was ill. 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 No chest pain or shortness of breath. Has tried some Tylenol [id number]. Temp yesterday was 100.8. he is a smoker. Review of Systems Constitutional: Positive for fatigue and fever. HENT: Positive for congestion, rhinorrhea and sore throat. Negative for ear pain. Respiratory: Positive for cough. Negative for shortness of breath and wheezing. Cardiovascular: Negative. Gastrointestinal: Negative. Genitourinary: Negative. Musculoskeletal: Positive for myalgias. Neurological: Positive for headaches. All other systems reviewed and are negative. PAST MEDICAL HISTORY Diagnosis Date Diabetes mellitus type 2, controlled, without complications (HCC) Frostbite of foot 1972 walked in a shinnecock. and hands Palpitations Current Outpatient Medications Medication Sig Dispense Refill metFORMIN (GLUCOPHAGE) 500 mg tablet Take 2 tablets by mouth twice daily with meals. 360 tablet 3 SITagliptin (JANUVIA) 100 mg tablet Take 1 tablet by mouth once daily. 90 tablet 3 simvastatin (ZOCOR) 40 mg tablet Take 1 tablet by mouth daily at bedtime. For cholesterols. 90 tablet 3 IBUPROFEN ORAL Take by mouth once daily. cholecalciferol, vitamin D3, (VITAMIN D3 ORAL) Take 1 tablet by mouth once daily. ascorbic acid, vitamin C, (VITAMIN C) 500 mg tablet Take 500 mg by mouth once daily. blood sugar diagnostic (BLOOD GLUCOSE TEST) test strip Test blood sugar(s) 1 times daily. Dx: 250.00. Insulin: No 100 Strip 3 Lancets lancets Test blood sugar(s) 1 times daily. Dx: 250.00. Insulin: No 100 Each 11 ferrous sulfate (IRON ORAL) Take by mouth. Blood-Glucose Meter monitoring kit Daily check. For DM type II, Dx 250.00 Nora Bardales MD 1 Each 0 MULTIVITS,CA,MIN/IRON/FA/LYCOP (CENTRUM ULTRA MEN'S ORAL) Take by mouth once daily. Vitamin E 400 unit ORAL Tab Take by mouth once daily. tamsulosin hcl(FLOMAX 0.4 MG 24 HR CAP) Take one(1) tablet at bedtime. 0 Current Facility-Administered Medications Medication Dose Route Frequency Provider Last Rate Last Admin perflutren lipid microspheres 1.3 mL in NaCl (PF) 0.9% 10 mL injection (DEFINITY) INTRAVENOUS DIRECTED PRN Jorge Guzman MD sodium chloride 0.9 % (flush) 10 mL (BD POSIFLUSH) 10 mL INTRAVENOUS DIRECTED PRN Jorge Guzman MD PAST SURGICAL HISTORY Procedure Laterality Date VASECTOMY UNI/BI SPX W/POSTOP SEMEN EXAMS FAMILY HISTORY Problem Relation Age of Onset Heart Father Diabetes Mother Cervical Cancer Paternal Grandfather Diabetes Sister Diabetes Sister Heart Brother irregular rhythm Social History Tobacco Use Smoking status: Every Day Packs/day: 1.25 Years: 30.00 Pack years: 37.50 Types: Cigarettes Smokeless tobacco: Never Tobacco comments: started age 25, quit in 2004 but started again around 07/18 Vaping Use Vaping Use: Never used Substance Use Topics Alcohol use: Yes Alcohol/week: 5.0 standard drinks Types: 1 Glasses of Wine (5oz), 1 Cans of Beer (12oz) per week Comment: occasional beer, wine Drug use: No Objective BP 110/68 Pulse 100 Temp 37 ?C (98.6 ?F) Resp 18 Wt 84.4 kg (186 lb) SpO2 100% BMI 27.47 kg/m? Physical Exam Vitals reviewed. Constitutional: Appearance: Normal appearance. HENT: Head: Normocephalic and atraumatic. Right Ear: Tympanic membrane, ear canal and external ear normal. Left Ear: Tympanic membrane, ear canal and external ear normal. Nose: Congestion present. Mouth/Throat: Mouth: Mucous membranes are moist. Pharynx: Uvula midline. Pharyngeal swelling and posterior oropharyngeal erythema present. No oropharyngeal exudate or uvula swelling. Tonsils: No tonsillar exudate or tonsillar abscesses. 2+ on the right. 2+ on the left. Cardiovascular: Rate and Rhythm: Normal rate and regular rhythm. Heart sounds: Normal heart sounds. Pulmonary: Effort: Pulmonary effort is normal. Breath sounds: Normal breath sounds. Musculoskeletal: Cervical back: Neck supple. Lymphadenopathy: Cervical: No cervical adenopathy. Skin: General: Skin is warm and dry. Findings: No rash. Neurological: Mental Status: He is alert. Assessment and Plan ASSESSMENT/PLAN: 1. Viral URI - ICD9: 465.9, ICD10: J06.9 - Discussed viral etiology and rationale for treatment. - Alere Strep Test negative, no culture pending - Symptomatic treatment with prn analges (more content not included)... [facility] 12-03-2022 History of Present illness Narrative This note was created using InToTally. Subjective Slava Fernandez is a 62 year old male. HPI Presents with a chief complaint of cough, sore throat, fever over the past 2 days. No diarrhea or vomiting. He has had body aches and chills. He has not had COVID previously, currently not vaccinated. He is a type II diabetic. He had done a COVID test at work however this was 4 days before he was ill. 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 No chest pain or shortness of breath. Has tried some Tylenol [id number]. Temp yesterday was 100.8. he is a smoker. Review of Systems Constitutional: Positive for fatigue and fever. HENT: Positive for congestion, rhinorrhea and sore throat. Negative for ear pain. Respiratory: Positive for cough. Negative for shortness of breath and wheezing. Cardiovascular: Negative. Gastrointestinal: Negative. Genitourinary: Negative. Musculoskeletal: Positive for myalgias. Neurological: Positive for headaches. All other systems reviewed and are negative. PAST MEDICAL HISTORY Diagnosis Date Diabetes mellitus type 2, controlled, without complications (HCC) Frostbite of foot 1971 walked in a shinnecock. and hands Palpitations Current Outpatient Medications Medication Sig Dispense Refill metFORMIN (GLUCOPHAGE) 500 mg tablet Take 2 tablets by mouth twice daily with meals. 360 tablet 3 SITagliptin (JANUVIA) 100 mg tablet Take 1 tablet by mouth once daily. 90 tablet 3 simvastatin (ZOCOR) 40 mg tablet Take 1 tablet by mouth daily at bedtime. For cholesterols. 90 tablet 3 IBUPROFEN ORAL Take by mouth once daily. cholecalciferol, vitamin D3, (VITAMIN D3 ORAL) Take 1 tablet by mouth once daily. ascorbic acid, vitamin C, (VITAMIN C) 500 mg tablet Take 500 mg by mouth once daily. blood sugar diagnostic (BLOOD GLUCOSE TEST) test strip Test blood sugar(s) 1 times daily. Dx: 250.00. Insulin: No 100 Strip 3 Lancets lancets Test blood sugar(s) 1 times daily. Dx: 250.00. Insulin: No 100 Each 11 ferrous sulfate (IRON ORAL) Take by mouth. Blood-Glucose Meter monitoring kit Daily check. For DM type II, Dx 250.00 Nora Bardales MD 1 Each 0 MULTIVITS,CA,MIN/IRON/FA/LYCOP (CENTRUM ULTRA MEN'S ORAL) Take by mouth once daily. Vitamin E 400 unit ORAL Tab Take by mouth once daily. tamsulosin hcl(FLOMAX 0.4 MG 24 HR CAP) Take one(1) tablet at bedtime. 0 Current Facility-Administered Medications Medication Dose Route Frequency Provider Last Rate Last Admin perflutren lipid microspheres 1.3 mL in NaCl (PF) 0.9% 10 mL injection (DEFINITY) INTRAVENOUS DIRECTED PRN Jorge Guzman MD sodium chloride 0.9 % (flush) 10 mL (BD POSIFLUSH) 10 mL INTRAVENOUS DIRECTED PRN Jorge Guzman MD PAST SURGICAL HISTORY Procedure Laterality Date VASECTOMY UNI/BI SPX W/POSTOP SEMEN EXAMS FAMILY HISTORY Problem Relation Age of Onset Heart Father Diabetes Mother Cervical Cancer Paternal Grandfather Diabetes Sister Diabetes Sister Heart Brother irregular rhythm Social History Tobacco Use Smoking status: Every Day Packs/day: 1.25 Years: 30.00 Pack years: 37.50 Types: Cigarettes Smokeless tobacco: Never Tobacco comments: started age 25, quit in 2004 but started again around 07/18 Vaping Use Vaping Use: Never used Substance Use Topics Alcohol use: Yes Alcohol/week: 5.0 standard drinks Types: 1 Glasses of Wine (5oz), 1 Cans of Beer (12oz) per week Comment: occasional beer, wine Drug use: No Objective BP 110/68 Pulse 100 Temp 37 C (98.6 F) Resp 18 Wt 84.4 kg (186 lb) SpO2 100% BMI 27.47 kg/m Physical Exam Vitals reviewed. Constitutional: Appearance: Normal appearance. HENT: Head: Normocephalic and atraumatic. Right Ear: Tympanic membrane, ear canal and external ear normal. Left Ear: Tympanic membrane, ear canal and external ear normal. Nose: Congestion present. Mouth/Throat: Mouth: Mucous membranes are moist. Pharynx: Uvula midline. Pharyngeal swelling and posterior oropharyngeal erythema present. No oropharyngeal exudate or uvula swelling. Tonsils: No tonsillar exudate or tonsillar abscesses. 2+ on the right. 2+ on the left. Cardiovascular: Rate and Rhythm: Normal rate and regular rhythm. Heart sounds: Normal heart sounds. Pulmonary: Effort: Pulmonary effort is normal. Breath sounds: Normal breath sounds. Musculoskeletal: Cervical back: Neck supple. Lymphadenopathy: Cervical: No cervical adenopathy. Skin: General: Skin is warm and dry. Findings: No rash. Neurological: Mental Status: He is alert. Assessment and Plan ASSESSMENT/PLAN: 1. Viral URI - ICD9: 465.9, ICD10: J06.9 - Discussed viral etiology and rationale for treatment. - Alere Strep Test negative, no culture pending - Symptomatic treatment with prn analgesia - Supportive care with fluids and rest - The patient may also use OTC cough and cold meds as needed. - Follow up in 3-5 days if symptoms persist or sooner if worsening of symptoms -If positive for COVID I did give him the EA U for Paxlovid and molnupiravir. I will call to follow-up with him tomorrow and discuss oral antivirals. - COVID WITH FLUA+B, ROUTINE - STREP A MOLECULAR (POC) Catalino Gonzalez PA-C documented in this encounter [facility] 12-03-2022 Instructions Catalino Gonzalez PA-C - 12/03/2022 11:06 AM EDT Mucinex dm Tylenol otc We will call if positive for covid tomorrow. documented in this encounter [facility] 11-23-2022 Note HNO ID: [id number] Author: Jorge Guzman MD Service: ? Author Type: Physician Type: Progress Notes Filed: 11/23/2022 11:16 AM Note Text: Cardiology consultation at the request of Crala Guzman CNP. A copy of this consultation note will be provided to the requesting physician by way of shared Medical record or letter to requesting physician via US mail. Chief Complaint: Patient presents with: Consult: Palpitations, Establishing with Cardiology History of Present Illness: Slava Fernandez is a 62 year old male with history of diabetes was referred by his primary care physician for an episode of SVT. Patient has been having intermittent episodes of palpitations once or twice a year. He saw Dr. Webster in May 2022. Patient said he had an episode where he felt his heart racing on in 2021. He said it lasted for about 3 to 4 minutes. It then went away on its own. He has had minor such episodes in the past. His next major episode was 13 September 2022. 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 As he was working in a [employer] the nurses came and checked on him and found that his heart rate was 190 bpm so they called the squad. They looked him up and confirmed the fast heart rate and rhythm to be SVT. They put him in the ambulance and gave him 1 dose of adenosine which converted him to normal rhythm. They took him to [facility] where a twelve-lead EKG done that confirmed normal sinus rhythm and he was discharged home. He saw his primary care physician who referred him to the brand inspector for further evaluation and treatment. Patient denies any chest pain shortness of breath orthopnea PND leg edema lightheadedness or syncope. He has been a chronic smoker and drinks up to 20 large cups of coffee every day. PAST MEDICAL HISTORY Diagnosis Date Diabetes mellitus type 2, controlled, without complications (HCC) Frostbite of foot 1971 walked in a shinnecock. and hands Palpitations PAST SURGICAL HISTORY Procedure Laterality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 the atria and ventricle but no sustained malignant arrhythmias or block. The patient states that he has had approximately 4 lifetime episodes of similar racing of the heart. Old short-lived. Before the January episode he had 1 that lasted again approximately 50 minutes a year ago. He did not seek medical attention at that time. He denies chest pain, shortness of breath, orthopnea, cough, edema, palpitations, PND, lightheadedness or syncope. He is a former [employer]. Continues to exercise on a regular basis. 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 He is unable to do pull-ups because of old shoulder injury. Denies any chest pain or shortness of breath with above-mentioned exercises. Unfortunately he smokes. Has been on treatment for diabetes mellitus for approximately 10 years. He has been on lipid management for 5 years. CARDIAC RISK FACTORS: Smoking: Yes, 1 ppd x 20 yrs Diabetes: Yes, 10 yrs. Lipids: Yes, 5 Obesity: No HTN: No Sedentary Lifestyle: No Family History of M.A.C.E: No CHF: No PVD/Stroke /TIA: No MOST RECENT CARDIAC TESTING: Echo: === Cardiac Catheterization: ==== Holter / Event Recorder : 01/26/22: Low frequency pvc and apc. No sustained malignant arrhythmias. Stress Test : ===== TILT: ===== Device: ==== Vasc: === PAST CARDIAC/VASCULAR EVENTS: None ACTIVE PROBLEM LIST Bph (Benign Prostatic Hyperplasia) Hyperlipidemia Diabetes Mellitus Type 2, Controlled, Without Complications (Hcc) Chest Pain PAST SURGICAL HISTORY Procedure Laterality Date VASECTOMY UNI/BI SPX W/POSTOP SEMEN EXAMS SOCIAL HISTORY Social History Tobacco Use Smoking status: Every Day Packs/day: 1.25 Years: 30.00 Pack years: 37.50 Types: Cigarettes Smokeless tobacco: Never Tobacco comments: started age 25, quit in 2004 but started again around 07/18 Vaping Use Vaping Use: Never used Substance Use Topics Alcohol use: Yes Alcohol/week: 5.0 standard drinks Types: 1 Glasses of Wine (5oz), 1 Cans of Beer (12oz) per week Comment: occasional beer, wine Drug use: No FAMILY HISTORY Problem Relation Age of Onset Heart Father Diabetes Mother Cervical Cancer Paternal Grandfather Diabetes Sister Diabetes Sister Heart Brother irregular rhythm ALLERGIES: ALLERGIES Allergen Reactions Morphine Vomiting MEDICATIONS: IBUPROFEN ORAL Take by mouth once daily. SITagliptin (JANUVIA) 100 mg tablet Take 1 tablet by mouth once daily. metFORMIN (GLUCOPHAGE) 500 mg tablet TAKE 2 TABLETS 2 TIMES DAILY WITH MEALS cholecalciferol, vitamin D3, (VITAMIN D3 ORAL) Take 1 tablet by mouth once daily. ascorbic acid, vitamin C, (VITAMIN C) 500 mg tablet Take 500 mg by mouth once daily. blood sugar diagnostic (BLOOD GLUCOSE TEST) test strip Test blood sugar(s) 1 times daily. Dx: 250.00. Insulin: No Lancets lancets Test blood sugar(s) 1 times daily. Dx: 250.00. Insulin: No simvastatin (ZOCOR) 40 mg tablet Take 1 tablet by mouth daily at bedtime. For cholesterols. ferrous sulfate (IRON ORAL) Take by mouth. Blood-Glucose Meter monitoring kit Daily check. For DM type II, Dx 250.00 Nora Bardales MD MULTIVITS,CA,MIN/IRON/FA/LYCOP (CENTRUM ULTRA MEN'S ORAL) Take by mouth once daily. Vitamin E 400 unit ORAL Tab Take by mouth once daily. tamsulosin hcl(FLOMAX 0.4 MG 24 HR CAP) Take one(1) tablet at bedtime. REVIEW OF SYSTEMS: GENERAL: Negative for: Weight loss or gain, Fever or Chills, Weakness and Sleep difficulties. HEENT: Negative for: Headache, Impaired Vision, Glasses, Hearing Impairment, Ringing in Ears, Nosebleeds, Poor dental care, Bleeding Gums, Dentures NECK: Negative for: Swelling, Pain, Stiffness RESPIRATORY: Negative for: Cough, Blood in Sputum, Shortness of breath, Wheezing, Apnea GASTROINTESTINAL: Negative for: Trouble swallowing, Heartburn, Change in bowel habits, Blood in stool, Dark black stools MUSCULOSKELETAL: Negative for: Muscle or joint pain, Stiffness , Joint swelling NEUROLOGIC/PSYCHIATRIC: Negative for: Weakness, Paralysis, Numbness, Tingling, Tremor, Nervousness, Depressed mood, Memory loss SKIN: Negative for: Rashes, Itching HEMATOLOGICAL/LYMPHATIC: Negative for: Easy bruising , Easy bleeding ENDOCRINE: Negative for: Heat or cold intolerance, Excessive sweating, Frequent urination, Frequent thirst PHYSICAL EXAMINATION: BP 120/80 Pulse 77 Resp 18 Ht 5' 9 (1.75m) Wt 182 lb (82.6kg) SpO2 98% BMI 26.86 kg/(m^2). General: Well appearing, in no acute distress. Skin: No clubbing, no cyanosis. Eyes: Extra ocular movements intact Oropharynx: Teeth in good repair. Neck: No jugular venous distention, no carotid bruits, carotids have a normal upstroke, no palpable thyromegaly. Lungs: Clear to auscultation bilaterally, no wheezing or rhonchi. Heart: Regular rhythm, PMI not displaced, S1, S2 normal, no S3, no S4, no heaves, no rub and no murmur. Abdomen: Soft, nontender, bowel sounds normal, no palpable organomegaly, no bruits. Extremities: No peripheral edema . Grade 2/4 distal pulses bilaterally. Neuro: Oriented to person, place and time, alert, cooperative, gait coordinated. CARDIOVASCULAR MEDICINE TESTING: Electrocardiogram: Normal tracing I have personally reviewed the Electrocardiogram and Laboratory Testing. Cholesterol, Total (mg/dL) Date Value 06/23/2021 162 07/15/2020 192 HDL Cholesterol (mg/dL) Date Value 06/23/2021 57 07/15/2020 54 LDL Cholesterol (mg/dL) Date Value 06/23/2021 89 07/15/2020 111 Triglyceride (mg/dL) Date Value 06/23/2021 81 07/15/2020 134 CMP: Glucose 148 01/25/2022 BUN 16 01/25/2022 Creatinine 1.05 01/25/2022 Sodium 136 01/25/2022 Potassium 4.4 01/25/2022 Chloride 100 01/25/2022 CO2 24 01/25/2022 Protein, Total 6.9 06/23/2021 Albumin 4.8 06/23/2021 Calcium 10.5 04/12/2022 Alkaline Phosphatase 55 06/23/2021 Bilirubin, Total 0.3 06/23/2021 AST 19 06/23/2021 ALT 17 06/23/2021 Hemoglobin (g/dL) Date Value 01/25/2022 13.7 06/23/2021 13.9 Hematocrit (%) Date Value 01/25/2022 41.5 06/23/2021 42.6 WBC (k/uL) Date Value 01/25/2022 6.31 06/23/2021 6.84 Platelet Count (k/uL) Date Value 01/25/2022 200 06/23/2021 188 Hemoglobin A1C (%) Date Value 06/23/2021 7.0 07/15/2020 8.6 07/12/2019 6.6 07/10/2018 7.7 02/12/2018 8.5 Hemoglobin A1C (POCT) (%) Date Value 04/12/2022 8.4 11/03/2021 8.0 IMPRESSION: Mr. Fernandez is a 61 year old male with episodes of tachyarrhythmias. These have not been well characterized to date. They do not appear to be frequent or hemodynamically compromising. The patient has risk factors for the presence of coronary disease or disease equivalency. These include diabetes mellitus, hyperlipidemia, and smoking. Recommendations. At this time I do not anticipate any provocative testing. I reviewed her Holter any type of ambulatory monitor would not be able to detect anything. I have asked the patient to obtain a self monitor watch or other digital products that are currently available. Perhaps we will be able to use this instead. The patient is advised to quit smoking by any means, he is also to observe strict lipid and diabetic management. Follow-up 6 months. During this 40 minute visit with greater than 50% of the time was spent in direct, [id number], contact with the patient for management and counseling. 1. Type 2 diabetes mellitus with hyperosmolarity without coma, without long-term current use of insulin (HCC) [E11.00 (ICD-10-CM)] - ICD9: 250.20, ICD10: E11.00 (primary diagnosis) 2. Palpitations - ICD9: 785.1, ICD10: R00.2 3. Pure hypercholesterolemia [E78.00 (ICD-10-CM)] - ICD9: 272.0, ICD10: E78.00 4. Smoking [F17.200 (ICD-10-CM)] - ICD9: 305.1, ICD10: F17.200 Sean Webster MD, [facility] This note was partially generated using [employer] voice recognition system, and there may be some incorrect words, spellings, and punctuation that were not noted in checking the note before saving. documented in this encounter [facility] 06-03-2022 Nurse Note Patient has no cardiac complaints today. Laureen Greenfield CMA documented in this encounter [facility] 04-12-2022 History of Present illness Narrative CHIEF COMPLAINT Patient presents with: Diabetes HISTORY OF PRESENT ILLNESS Slava Fernandez is a 61 year old male who presents here today for follow up management of diabetes. I last saw this patient on 11/03/21. Diabetes Mellitus Patient is managed on metformin and Januvia 25 mg Patient needs a new glucose monitor His most recent a1C was 8.4 which was up from previous Patient does not know why his levels are elevated Patient says that he eats [employer] cups a lot Health Maintenance Due for Pneumovax. Due for lung cancer screening Due for Shingrix series Due for routine colon cancer screening. Due for depression screening. Due for routine labs. Labs reviewed. Past medical history, appointments, medications, allergies reviewed. REVIEW OF SYSTEMS Pertinent positives/ negatives: General: Feels well, no fever, no chills HEENT: No sinus congestion, earache, sore throat. Cardiac: No chest pain, palpitations Resp: No cough, wheeze, shortness of breath GI: No reflux symptoms, food intolerance, bowel changes. : No urinary frequency, dysuria. MS: No pain or joint complaints. Endo: +eelvated A1C PAST MEDICAL HISTORY PAST MEDICAL HISTORY Diagnosis Date Diabetes mellitus type 2, controlled, without complications (HCC) Frostbite of foot 1972 walked in a shinnecock. and hands PHYSICAL EXAMINATION BP 96/65 Pulse 79 Ht 175.3 cm (5' 9 ) Wt 83 kg (183 lb) SpO2 99% BMI 27.02 kg/m General: Alert, well developed, well nourished, no distress, pleasant and cooperative. Heart: Regular rate and rhythm. Normal S1 and S2. No murmurs, rubs, or gallops. Lungs: Clear to auscultation bilaterally. No respiratory distress. No wheezes, rales, or rhonchi. Abdomen: Soft, non-tender, no distention. Extremities: Feet/ankles without edema, posterior tibial pulses full and symmetrical. Data Reviewed 01/25/22 TSH- within normal limits Magnesium- within normal limits CBC+DIFF- within normal limits BMP- calcium (10.8 high) glucose (148 high) Assessment/Plan (E11.65) Uncontrolled type 2 diabetes mellitus with hyperglycemia (HCC) Comment: Patient has poor control over his diabetes. Plan: HEMOGLOBIN A1C (POC) -increased dose of Januvia, he is to let me know which meter to get. (E83.52) Hypercalcemia Comment: per labs Plan: CALCIUM TOTAL BLD, PTH INTACT BLD (Z12.11) Encounter for screening fecal occult blood testing Comment: Due for routine colon cancer screening. Plan: FECAL OCCULT BLOOD TEST Signed Prescriptions Disp Refills SITagliptin (JANUVIA) 100 mg tablet 90 tablet 3 Sig: Take 1 tablet by mouth once daily. RTO: 6 months Scribe Attestation: By signing my name below, I, Vale Vaca, attest that this documentation has been prepared under the direction and in the presence of Howie Bardales M.D. Electronically Signed: Matt Shukla. April 12, 2022 11:34 AM Provider Attestation: INora MD, personally performed the services described in this documentation. All medical record entries made by the scribe were at my direction and in my presence. I have reviewed the chart and discharge instructions (if applicable) and agree that the record reflects my personal performance and is accurate and complete. Electronically Signed: Nora Bardales MD. April 12, 2022 4:22 PM documented in this encounter [facility] 01-26-2022 Miscellaneous Notes Notified patient. He will call back to schedule OV. Patient verbalizes understanding and has no other questions or concerns at this time. Kei Barnes RN Please let patient know that his blood work was mostly normal except for an elevated calcium level. This has been elevated in the past but has increased again. I would like to have him seen again in one month to discuss this further plus he's also due for a visit to discuss diabetes management as well. May schedule with me or Dr. Bardales. Yenifer Carrasco APRN.JERRY documented in this encounter [facility] 01-25-2022 Instructions Vidya Knott PA-C - 01/25/2022 4:04 PM EDT 1. Schedule Holter monitor and cardiology follow-up. 2. Follow up with Dr. Nora Bardales MD or myself as needed. 3. Go to the ED for chest pain, shortness of breath, loss of consciousness, or other worsening symptoms. Thank you for allowing me to take part in your care today, Slava! documented in this encounter [facility] 01-25-2022 History of Present illness Narrative GENERAL VISIT PROGRESS NOTE CC: Slava Fernandez is a 61 year old male established with Dr. Nora Bardales MD who presents with chief complaint of elevated heart rate. Subjective Slava has been having intermittently elevated heart rates. Initially happened last year, but hasn't happened since then until this weekend. Monday evening patient was getting ready to build a fire and started feeling his heart racing. At that time, BP was 117/80, heart rate was over 160bpm. After laying down, the heart rate came down to 80bpm. It lasted about 10 minutes total. Hasn't had symptoms since this occurrence. He has no identifiable triggers. States it doesn't seem to be exertional, as he was chopping firewood earlier in the day without symptoms. He does report some increased stress Monday due to it being his wedding anniversary with . At the time of palpitations and currently, patient denies chest pain or shortness of breath. He states there may have been some lightheadedness during the episode, denies dizziness or symptoms now. Denies any fatigue. Denies abnormal bleeding such as blood in his stools/urine or easy bruising. Admits to occasional wine/whiskey. Denies drug use. No recent medication changes. The history is provided by the patient and medical records. No english language learner teacher was used. Review of Systems Constitutional: Negative for chills, fatigue and fever. HENT: Negative. Eyes: Negative for visual disturbance. Respiratory: Negative for shortness of breath. Cardiovascular: Positive for palpitations. Negative for chest pain and leg swelling. Gastrointestinal: Negative for blood in stool, nausea and vomiting. Genitourinary: Negative for hematuria. Musculoskeletal: Negative. Skin: Negative. Allergic/Immunologic: Negative for immunocompromised state. Neurological: Positive for light-headedness. Negative for dizziness, syncope, weakness, numbness and headaches. Hematological: Does not bruise/bleed easily. Psychiatric/Behavioral: Negative for agitation, behavioral problems and confusion. History Reviewed: PAST MEDICAL HISTORY Diagnosis Date Diabetes mellitus type 2, controlled, without complications (HCC) Frostbite of foot 1971 walked in a shinnecock. and hands PAST SURGICAL HISTORY Procedure Laterality Date VASECTOMY UNI/BI SPX W/POSTOP SEMEN EXAMS FAMILY HISTORY Problem Relation Age of Onset Heart Father Diabetes Mother Cervical Cancer Paternal Grandfather Diabetes Sister Diabetes Sister Heart Brother irregular rhythm Social History Tobacco Use Smoking status: Current Every Day Smoker Packs/day: 1.25 Years: 30.00 Pack years: 37.50 Types: Cigarettes Smokeless tobacco: Never Used Tobacco comment: started age 25, quit in 2004 but started again around 07/18 Vaping Use Vaping Use: Never used Substance Use Topics Alcohol use: Yes Alcohol/week: 5.0 standard drinks Types: 1 Glasses of Wine (5oz), 1 Cans of Beer (12oz) per week Comment: occasional beer, wine Drug use: No ALLERGIES Allergen Reactions Morphine Vomiting Current Outpatient Medications Medication Sig JANUVIA 25 mg tablet TAKE 1 TABLET ONCE DAILY metFORMIN (GLUCOPHAGE) 500 mg tablet TAKE 2 TABLETS 2 TIMES DAILY WITH MEALS cholecalciferol, vitamin D3, (VITAMIN D3 ORAL) Take 1 tablet by mouth once daily. ascorbic acid, vitamin C, (VITAMIN C) 500 mg tablet Take 500 mg by mouth once daily. blood sugar diagnostic (BLOOD GLUCOSE TEST) test strip Test blood sugar(s) 1 times daily. Dx: 250.00. Insulin: No Lancets lancets Test blood sugar(s) 1 times daily. Dx: 250.00. Insulin: No simvastatin (ZOCOR) 40 mg tablet Take 1 tablet by mouth daily at bedtime. For cholesterols. ferrous sulfate (IRON ORAL) Take by mouth. RANITIDINE HCL ORAL Take by mouth once daily. Blood-Glucose Meter monitoring kit Daily check. For DM type II, Dx 250.00 Nora Bardales MD MULTIVITS,CA,MIN/IRON/FA/LYCOP (CENTRUM ULTRA MEN'S ORAL) Take by mouth once daily. Vitamin E 400 unit ORAL Tab Take by mouth once daily. tamsulosin hcl(FLOMAX 0.4 MG 24 HR CAP) Take one(1) tablet at bedtime. Objective Physical Exam: Physical Exam Vitals and nursing note reviewed. Constitutional: General: He is awake. He is not in acute distress. Appearance: Normal appearance. He is well-developed and well-groomed. He is not ill-appearing, toxic-appearing or diaphoretic. HENT: Head: Normocephalic and atraumatic. Eyes: General: Right eye: No discharge. Left eye: No discharge. Conjunctiva/sclera: Conjunctivae normal. Cardiovascular: Rate and Rhythm: Normal rate and regular rhythm. No extrasystoles are present. Pulses: Radial pulses are 2+ on the right side and 2+ on the left side. Heart sounds: Normal heart sounds, S1 normal and S2 normal. No murmur heard. Pulmonary: Effort: Pulmonary effort is normal. No respiratory distress. Breath sounds: Normal breath sounds. No decreased breath sounds, wheezing, rhonchi or rales. Musculoskeletal: Cervical back: Neck supple. Right lower leg: No edema. Left lower leg: No edema. Comments: FRITZ equally x 4. Patient ambulating in office without difficulty. Skin: General: Skin is warm and dry. Neurological: Mental Status: He is alert and oriented to person, place, and time. Psychiatric: Behavior: Behavior normal. Behavior is cooperative. Thought Content: Thought content normal. Judgment: Judgment normal. ASSESSMENT/PLAN: 1. Palpitations - ICD9: 785.1, ICD10: R00.2 - Asymptomatic at this time. Stressed importance of presenting to ED immediately/calling EMS if symptoms recur, especially in the setting of chest pain, shortness of breath, or LOC. - Obtain lab work to r/u electrolyte abnormality, anemia, or thyroiditis - ECG COMPLETE - NSR with HR 70bpm, essentially unchanged from prior in 2016 - CONSULT TO CARDIOLOGY - HOLTER MONITOR 48 HOUR - BASIC METABOLIC PNL - CBC + DIFF - MAGNESIUM BLD - TSH BLD I spent a total of 20 minutes on the date of the service which included preparing to see the patient, [id number] patient care, completing clinical documentation, obtaining and/or reviewing separately obtained history, performing a medically appropriate examination and counseling and educating the patient/family/caregiver. Vidya Knott PA-C documented in this encounter [facility] 01-25-2022 Miscellaneous Notes Patient is scheduled at 3 PM for nurse triage call, and scheduled as provider visit at 3:40 PM today. Spoke with provider Vidya Knott who would still like nursing outreach prior to appointment. Called patient, he is not having any current symptoms. His most recent episode of HR >160 was on Monday. He is having no chest pain and no lightheadedness at this time. He said when the HR increases during an episode, his chest might hurt a little bit but does not have any other symptoms with it. He states there is no rhyme or reason to when this happens. Patient feels well at this time and plans to attend visit as scheduled. Reason for Disposition Nursing judgment Protocols used: NO GUIDELINE OR REFERENCE [id number] documented in this encounter [facility] 01-25-2022 Miscellaneous Notes Patient scheduled for a nurse triage phone call as well as an appointment this afternoon with [place] Please schedule patient SENIA with either provider to discuss new symptom of elevated heart rate. In person visit, not virtual. Yenifer Carrasco APRN.JERRY documented in this encounter [facility] 12-21-2021 Miscellaneous Notes Last appointment: 11/03/21 Next appointment: n/a Pharmacy verified in [employer]. Refill(s) requested: Pending Prescriptions Disp Refills JANUVIA 25 MG TABLET 30 tablet 3 Sig: TAKE 1 TABLET ONCE DAILY HILLARY: Yes Order(s) pended. Please advise. Cait Mullen LPN documented in this encounter [facility] 12-21-2021 Miscellaneous Notes Last appointment:11/03/21 Next appointment: n/a Pharmacy verified in [employer]. Refill(s) requested: Pending Prescriptions Disp Refills METFORMIN 500 MG TABLET 360 tablet 0 Sig: TAKE 2 TABLETS 2 TIMES DAILY WITH MEALS HILLARY: Yes Order(s) pended. Please advise. Cait Mullen LPN documented in this encounter [facility] 08-18-2012 History of Past i llness Narrative Problem Noted Date Diagnosed Date Resolved Date Diabetes mellitus type 2, co ntrolled, without complications 08/18/2012 10/19/2023 documented as of this encounter (statuses as of 10/19/2023) [facility] note* Diagnosis Controlled type 2 diabetes mellitus without complication, without long-term current use of insulin (HCC) documented in this encounter [facility] note* Diagnosis Palpitations- Primary [facility] Diagnosis Serum calcium elevated- Primary Hypercalcemia documented in this encounter [facility] note* Diagnosis Palpitations documented in this encounter [facility] note* Diagnosis Uncontrolled type 2 diabetes mellitus with hyperglycemia (HCC)- Primary Hypercalcemia Encounter for screening fecal occult blood testing Special screening for malignant neoplasms, colon documented in this encounter [facility] note* Diagnosis Type 2 diabetes mellitus with hyperosmolarity without coma, without long-term current use of insulin (HCC) [E11.00 (ICD-10-CM)]- Primary Palpitations Pure hypercholesterolemia [E78.00 (ICD-10-CM)] Pure hypercholesterolemia Smoking [F17.200 (ICD-10-CM)] Tobacco use disorder [facility]* Diagnosis Well adult exam- Primary Routine general medical examination at a health care facility Controlled type 2 diabetes mellitus without complication, without long-term current use of insulin (HCC) Mixed hyperlipidemia Continuous tobacco abuse [facility]* Diagnosis SVT (supraventricular tachycardia) (HCC)- Primary Other specified cardiac dysrhythmias Follow-up exam Unspecified follow-up examination [facility]* Diagnosis SVT (supraventricular tachycardia) (HCC)- Primary Other specified cardiac dysrhythmias Palpitations Smoker Tobacco use disorder [facility] Diagnosis Viral URI- Primary Acute upper respiratory infections of unspecified site [facility] Diagnosis Well adult exam- Primary Routine general medical examination at a health care facility Uncontrolled type 2 diabetes mellitus with hyperglycemia (HCC) Mixed hyperlipidemia Continuous tobacco abuse Screening for colon cancer Special screening for malignant neoplasms, colon Screening for malignant neoplasm of lung declined by patient Vaccination refused by patient Depression screening Screening for depression documented in this encounter [facility] Summary Purpose Family History No Family History Records FoundNo Family History Records FoundNo Family History Records Found Advance Directives No Advanced Directives Records FoundNo Advanced Directives Records FoundNo Advanced Directives Records Found Reason for Referral Specialty Diagnoses / Procedures Referred By Contac t Referred To Contact Cardiology Diagnoses Palpitations Procedures CONSULT TO CARDIOLOGY OFFICE/OUTPATIENT [facility] 60-74 MINUTES Vidya Knott PA-C [address] [place] [address] Referral ID Status Reason Start Date Expiration Date Visits Requested Visits Authorized [id number] Pending Review PCP Requested Referral 01/25/2022 01/25/2023 1 1 Specialty Diagnoses / Procedures Referred By Contac t [facility] Diagnoses Palpitations Procedures ECG COMPLETE ECG ROUTINE ECG W/LEAST 12 LDS W/I&R Vidya Knott PA-C [address] [place] [address] [facility] [address] [place] [address] Referral ID Status Reason Start Date Expiration Date Visits Requested Visits Authorized [id number] Pending Review Auto-Generat ed Referral 01/25/2022 01/25/2023 1 1 Specialty Diagnoses / Procedures Referred By Contac t Referred To Contact Diagnoses SVT (supraventricular tachycardia) (HCC) Procedures CONSULT TO ELECTROPHYSIOLOGY OFFICE/OUTPATIENT [facility] 60-74 MINUTES Jorge Guzman MD [address] [place] [address] Referral ID Status Reason Start Date Expiration Date Visits Requested Visits Authorized [id number] Pending Review PCP Requested Referral 11/23/2022 02/21/2023 1 1 Specialty Diagnoses / Procedures Referred By Contac t [facility] Diagnoses SVT (supraventricular tachycardia) (HCC) Procedures ECHO ECHO TTHRC R-T 2D W/WOM-MODE COMPL SPEC&COLR D Jorge Guzman MD [address] [place] [address] [facility] [address] [place] [address] Referral ID Status Reason Start Date Expiration Date Visits Requested Visits Authorized [id number] Authorized Auto-Generat ed Referral 11/23/2022 11/23/2023 1 1 Specialty Diagnoses / Procedures Referred By Contac t Referred To Contact [facility] Diagnoses Palpitations Procedures ECG COMPLETE ECG ROUTINE ECG W/LEAST 12 LDS W/I&R Jorge Guzman MD [address] [place] [address] [facility] [address] [place] [address] Referral ID Status Reason Start Date Expiration Date V isits Requested Visits Authorized [id number] Closed Auto-Generate d Referral 11/23/2022 11/18/2023 1 1 Health Concerns Infection Onset Date Last Indicated Resolved Time COVID-19 Rule-Out 12/03/2022 12/03/2022 Additional Source Comments (unrecognized sect ion and content) No Status Records FoundNo Status Records FoundNo Status Records Found INFORMATION SOURCE (unrecogn ized section and content) DATE CREATED AUTHOR 12/08/2020 [facility] DATE CREATED AUTHOR AUTHOR'S ORGANIZ ATION 08/27/2023 [facility] DATE CREATED AUTHOR AUTHOR'S ORGANIZ ATION 10/27/2023 [facility] Source Comments (unrecognize d section and content) In the event this informatio n is protected by the Federal Confidentiality of Alcohol and Drug Abuse Patient Records regulations: The Federal rules restrict any use of the information to criminally investigate or prosecute any alcohol or drug abuse patient.[facility] event this information is protected by the Federal Confidentiality of Alcohol and Drug Abuse Patient Records regulations: The Federal rules restrict any use of the information to criminally investigate or prosecute any alcohol or drug abuse patient.[facility] the event this information is protected by the Federal Confidentiality of Alcohol and Drug Abuse Patient Records regulations: The Federal rules restrict any use of the information to criminally investigate or prosecute any alcohol or drug abuse patient.[facility] the event this information is protected by the Federal Confidentiality of Alcohol and Drug Abuse Patient Records regulations: The Federal rules restrict any use of the information to criminally investigate or prosecute any alcohol or drug abuse patient.[facility] the event this information is protected by the Federal Confidentiality of Alcohol and Drug Abuse Patient Records regulations: The Federal rules restrict any use of the information to criminally investigate or prosecute any alcohol or drug abuse patient.[facility] the event this information is protected by the Federal Confidentiality of Alcohol and Drug Abuse Patient Records regulations: The Federal rules restrict any use of the information to criminally investigate or prosecute any alcohol or drug abuse patient.[facility] the event this information is protected by the Federal Confidentiality of Alcohol and Drug Abuse Patient Records regulations: The Federal rules restrict any use of the information to criminally investigate or prosecute any alcohol or drug abuse patient.[facility] the event this information is protected by the Federal Confidentiality of Alcohol and Drug Abuse Patient Records regulations: The Federal rules restrict any use of the information to criminally investigate or prosecute any alcohol or drug abuse patient.[facility] the event this information is protected by the Federal Confidentiality of Alcohol and Drug Abuse Patient Records regulations: The Federal rules restrict any use of the information to criminally investigate or prosecute any alcohol or drug abuse patient.[facility] the event this information is protected by the Federal Confidentiality of Alcohol and Drug Abuse Patient Records regulations: The Federal rules restrict any use of the information to criminally investigate or prosecute any alcohol or drug abuse patient.[facility] the event this information is protected by the Federal Confidentiality of Alcohol and Drug Abuse Patient Records regulations: The Federal rules restrict any use of the information to criminally investigate or prosecute any alcohol or drug abuse patient.[facility] the event this information is protected by the Federal Confidentiality of Alcohol and Drug Abuse Patient Records regulations: The Federal rules restrict any use of the information to criminally investigate or prosecute any alcohol or drug abuse patient.[facility] the event this information is protected by the Federal Confidentiality of Alcohol and Drug Abuse Patient Records regulations: The Federal rules restrict any use of the information to criminally investigate or prosecute any alcohol or drug abuse patient.[facility] the event this information is protected by the Federal Confidentiality of Alcohol and Drug Abuse Patient Records regulations: The Federal rules restrict any use of the information to criminally investigate or prosecute any alcohol or drug abuse patient.[facility] the event this information is protected by the Federal Confidentiality of Alcohol and Drug Abuse Patient Records regulations: The Federal rules restrict any use of the information to criminally investigate or prosecute any alcohol or drug abuse patient.[facility] the event this information is protected by the Federal Confidentiality of Alcohol and Drug Abuse Patient Records regulations: The Federal rules restrict any use of the information to criminally investigate or prosecute any alcohol or drug abuse patient.[facility] the event this information is protected by the Federal Confidentiality of Alcohol and Drug Abuse Patient Records regulations: The Federal rules restrict any use of the information to criminally investigate or prosecute any alcohol or drug abuse patient.[facility] the event this information is protected by the Federal Confidentiality of Alcohol and Drug Abuse Patient Records regulations: The Federal rules restrict any use of the information to criminally investigate or prosecute any alcohol or drug abuse patient.[facility] the event this information is protected by the Federal Confidentiality of Alcohol and Drug Abuse Patient Records regulations: The Federal rules restrict any use of the information to criminally investigate or prosecute any alcohol or drug abuse patient.[facility] Reason for Visit (unrecogniz ed section and content) Reason Comments Refill Request Reason Comments Nurse Triage Call Reason Comments Palpitations happens randomly. Mo st recent on Monday after splitting Zonoff Reason Comments Results Reason Comments Diabetes Specialty Diagnoses / Procedures Referred By Contac t Referred To Contact Cardiology Diagnoses Palpitations Procedures CONSULT TO CARDIOLOGY OFFICE/OUTPATIENT [facility] 60-74 MINUTES Vidya Knott PA-C [address] [place] [address] Referral ID Status Reason Start Date Expiration Date Visits Requested Visits Authorized [id number] Pending Review PCP Requested Referral 01/25/2022 01/25/2023 1 1 Reason Comments Received Outside Medical Records [facility] Reason Comments Outside Lab Results [facility] Reason Comments Physical Reason Comments Nurse Triage Call ED follow up Reason Comments ER F/U [facility] palpitations Reason Comments Received Outside Medical Records EKG [facility] Reason Comments Consult Palpitations, Establ ishing with Cardiology Reason Comments Cough congestion, bodyache s, chills and fever x 2 days Care Teams (unrecognized sec tion and content) Architectural Inspector Relationship Specialty Start Date End Date Nora Bardales MD [address] [facility] [address] [place], [place] [address] PCP - General Family Practice 07/12/19 Architectural Inspector Relationship Specialty Start Date End Date Nora Bardales MD [address] [facility] [place] [address] PCP - General Family Practice 07/12/19 Architectural Inspector Relationship Specialty Start Date End Date Nora Bardales MD [address] [facility] [place] [address] PCP - General Family Practice 07/12/19 Architectural Inspector Relationship Specialty Start Date End Date Nora Bardales MD [address] [facility] [place] [address] PCP - General Family Practice 07/12/19 Architectural Inspector Relationship Specialty Start Date End Date Nora Bardales MD [address] [facility] [place] [address] PCP - General Family Practice 07/12/19 Architectural Inspector Relationship Specialty Start Date End Date Nora Bardales MD [address] [facility] [place] [address] PCP - General Family Medicine 07/12/19 Architectural Inspector Relationship Specialty Start Date End Date Nora Bardales MD [address] [facility] [place] [address] PCP - General Family Medicine 07/12/19 Architectural Inspector Relationship Specialty Start Date End Date Nora Bardales MD [address] [place] [address] [place] [address] PCP - General Family Medicine 07/12/19 Architectural Inspector Relationship Specialty Start Date End Date Nora Bardales MD [address] [place] [address] [place] [address] PCP - General Family Medicine 07/12/19 Architectural Inspector Relationship Specialty Start Date End Date Nora Bardales MD [address] [place] [address] [place] [address] PCP - General Family Medicine 07/12/19 Architectural Inspector Relationship Specialty Start Date End Date Nora Bardales MD [address] [place] [address] [place] [address] PCP - General Family Medicine 07/12/19 Architectural Inspector Relationship Specialty Start Date End Date Nora Bardales MD [address] [place] [address] [place] [address] PCP - General Family Medicine 07/12/19 Architectural Inspector Relationship Specialty Start Date End Date Nora Bardales MD [address] [place] [address] [place] [address] PCP - General Family Medicine 07/12/19 Architectural Inspector Relationship Specialty Start Date End Date Nora Bardales MD [address] [place] [address] [place] [address] PCP - General Family Medicine 07/12/19 Architectural Inspector Relationship Specialty Start Date End Date Nora Bardales MD [address] [place] [address] [place] [address] PCP - General Family Medicine 07/12/19 FOR RECORDS PERTAINING TO PATIENTS WHO ARE OR HAVE BEEN ENROLLED IN A CHEMICAL DEPENDENCY/SUBSTANCEABUSE PROGRAM, SOME INFORMATION MAY BE OMITTED. This clinical summary was aggregated from multiple sources. Caution should be exercised in using it in the provision of clinical care. This summary normalizes information from multiple sources, and as a consequence, information in this document may materially change the coding, format and clinical context of patient data. In addition, data may be omitted in some cases. CLINICAL DECISIONS SHOULD BE BASED ON THE PRIMARY CLINICAL RECORDS. [employer] [facility]. provides no warranty or guarantee of the accuracy or completeness of information in this document.
[2024-07-07 15:45] LABS: ALB/GLOB Ratio 1.1 RATIO (0.9-2.4); AST(SGOT) 12 U/L (15-37); Alanine Aminotransfer ALT/SGPT 22 U/L (16-61); Albumin, Serum 4.1 g/dL (3.2-5.0); Alkaline Phosphatase 75 U/L (45-117); Anion Gap 8 (5-15); BUN 14 mg/dL (7-18); BUN/Creat Ratio 12.4 RATIO (10-20); Calcium,Total 10.1 mg/dL (8.5-10.1); Chloride 104 mmol/L (98-107); Creatinine, Serum 1.13 mg/dL (0.70-1.30); EST Glomerular Filtration Rate 70 mL/min (>60); Est Glom Filt Rate - Afr Amer 84 mL/min (>60); Estimated Creatinine Clearance 66.91 ml/min; Globulin 3.7 g/dL (2.2-4.2); Glucose 281 mg/dL (74-106); Lipase 56 U/L (13-75); Potassium 4.2 mmol/L (3.5-5.1); Protein, Total 7.8 g/dL (6.4-8.2); Sodium Level 136 mmol/L (136-145)
[2024-07-07 16:45] LABS: Color, Urine Brown (Yellow); Glucose, Dipstick 100 mg/dl (Normal); Ketone-Dipstick 15 mg/dl (Negative); Leukocyte Esterase-Dipstick 500 /ul (Negative); Nitrite-Dipstick Negative (Negative); Occult Blood-Urine 250 /ul (Negative); Protein-Dipstick 100 mg/dl (Negative); Urine Bilirubin Dipstick Negative (Negative); Urine Clarity Cloudy (Clear); Urine Urobilinogen 1 mg/dl (Normal)
[2024-07-07 16:55] VITALS: BP 99/57; PULSE 75; RESP 18; O2SAT 98
[2024-07-07 17:07] LABS: White Blood Cells >100 SEEN /hpf (0-5)
[2024-07-07 17:08] LABS: Bacteria 2+ /hpf (None Seen); Squamous Epithelial Cells - UA 0-5 SEEN /hpf (0-5)
[2024-07-07 17:09] LABS: Mucous, Urine 1+ /hpf (<or=2+); Red Blood Cells-Urine > 100 SEEN /hpf (0-5)
[2024-07-07] MEDS: Smz/Tmp Ds Tablet 1 TABLET PO (17:46)
[2024-07-07 17:47] VITALS: BP 115/75; PULSE 75; RESP 18; TEMP 37.1; O2SAT 97
== END 2024-07-07 17:53 | disposition home or self-care (01) ==
PROVIDERS: Emergency Provider Emergency Medicine; PCP Family Medicine; Visit Provider Emergency Medicine
DX: N13.6 Pyonephrosis (principal); E11.9 Type 2 diabetes mellitus without complications; E78.5 Hyperlipidemia, unspecified; F17.210 Nicotine dependence, cigarettes, uncomplicated; Z79.84 Long term (current) use of oral hypoglycemic drugs; Z79.899 Other long term (current) drug therapy
CPT/HCPCS: 74177; 80053; 81001; 83690; 85025; 87086; 96374; 96375; 99284; Q9967; A4216; J2405

== ENCOUNTER → 2024-07-09 | Outpatient (CLI) | payer OTHER, SELFPAY ==
[2024-07-09 10:48] LABS: Hematocrit 43.1 % (40-54); Hemoglobin 14.5 g/dL (13.0-16.5); Mean Corp Hgb Conc 33.6 g/dL (32-36); Mean Corpuscular Volume 98.2 fL (80-94); Mean Platelet Vol. 9.6 fl (6.2-12.0); Platelet Count 229 K/mm3 (150-450); RBC Distribution Width CV 12.7 % (11.6-14.6); Red Blood Count 4.39 M/mm3 (4.6-6.2); White Blood Count 6.2 K/mm3 (4.4-11.0)
[2024-07-09 11:14] LABS: Anion Gap 3 (5-15); BUN 15 mg/dL (7-18); BUN/Creat Ratio 11.5 RATIO (10-20); Calcium,Total 9.9 mg/dL (8.5-10.1); Chloride 105 mmol/L (98-107); Creatinine, Serum 1.31 mg/dL (0.70-1.30); EST Glomerular Filtration Rate 59 mL/min (>60); Est Glom Filt Rate - Afr Amer 71 mL/min (>60); Glucose 276 mg/dL (74-106); Potassium 4.5 mmol/L (3.5-5.1); Sodium Level 138 mmol/L (136-145)
== END | disposition home or self-care (01) ==
LOC: LAB 10:07
PROVIDERS: PCP Family Medicine; Referring Provider Urology; Visit Provider Urology
DX: Z01.812 Encounter for preprocedural laboratory examination (principal)
CPT/HCPCS: 36415; 80048; 85027

== ENCOUNTER → 2024-07-17 | Outpatient (CLI) | payer OTHER, SELFPAY ==
--- NOTE | 2024-07-17 08:05 | EKG12_ITS ---
Test Reason : PREOP Blood Pressure : */* mmHG Vent. Rate : 79 BPM Atrial Rate : 79 BPM P-R Int : 186 ms QRS Dur : 78 ms QT Int : 374 ms P-R-T Axes : 79 69 75 degrees QTcB Int : 428 ms Normal sinus rhythm Normal ECG Confirmed by Kayden Mccarty ([id number]), brands editor ROOSEVELT MARRERO ([id number]) on 07/17/2024 1:09:52 PM Referred By: Santino Bui Confirmed By: Kayden Mccarty
== END | disposition home or self-care (01) ==
PROVIDERS: PCP Family Medicine; Referring Provider Urology; Visit Provider Urology
DX: Z01.810 Encounter for preprocedural cardiovascular examination (principal)
CPT/HCPCS: 93005

== ENCOUNTER → 2024-07-31 | Outpatient (CLI) | payer OTHER, SELFPAY | END | disposition home or self-care (01) | LOC: RAD 13:43 | PROVIDERS: PCP Family Medicine; Referring Provider Nurse Practitioner; Visit Provider Nurse Practitioner | DX: N20.0 Calculus of kidney (principal) | CPT/HCPCS: 74018 ==

== ENCOUNTER 2024-08-16 12:32 | Day surgery (SDC) | payer OTHER, SELFPAY ==
[2024-08-16] VITALS (7 sets, daily range): BP systolic 127–150; BP diastolic 75–84; PULSE 68–84; RESP 16–18; TEMP 36.3–36.6; O2SAT 98–100; BMI 25.1
--- NOTE | 2024-08-16 13:00 | PRE.ANES_ITS ---
ASA Classification* ASA Classification ASA Classification: 3 Assessment & Plan Anesthesia* Anesthesia Assessment Anesthesia Assessment: Discussed sedation and/or anesthesia options, risks, benefits, and alternatives with patient/parents/legal guardian/POA. Questions invited. The patient/parents/legal guardian/POA seems to understand and agrees to proceed with anesthesia plan. Reviewed the physical assessment, medical history, allergy history and patient home medications list prior to surgery/procedure/anesthetic and documented any changes. Performed airway and anesthesia risk assessments. Anesthesia Type Anesthesia Type: General Anesthesia Focused Assessment* Airway Assessment Mouth opens: >3 cm Mallampati Score: II Focused Labs Anesthesia Preop lab: CBC WBC 6.2 K/mm3 (4.4-11.0) 07/09/24 10:13 RBC 4.39 M/mm3 (4.6-6.2) L 07/09/24 10:13 Hgb 14.5 g/dL (13.0-16.5) 07/09/24 10:13 Hct 43.1 % (40-54) 07/09/24 10:13 Plt Count 229 K/mm3 (150-450) 07/09/24 10:13 CHEMISTRY Potassium 4.5 mmol/L (3.5-5.1) 07/09/24 10:13 Sodium 138 mmol/L (136-145) 07/09/24 10:13 BUN 15 mg/dL (7-18) 07/09/24 10:13 Creatinine 1.31 mg/dL (0.70-1.30) H 07/09/24 10:13 Glucose 276 mg/dL (74-106) H 07/09/24 10:13 COAG Pre-Assessment Diagnosis/Proposed Procedure Planned Operative Procedure(s): BILAT URETEROSCOPY LASER STONES BILAT STENT PLACEMENT Anesthesia History Anesthesia History - business solutions director: Anesthesia History - business solutions director Hx Hospitalization No 08/05/24 14:04 Any Problems With Anesthesia No 08/05/24 14:04 Cholinesterase deficiency No 08/05/24 14:04 You/Your Family Experience No 08/05/24 14:04 fever (hyperthermia) with Relationship Recent Exposure to Contagious Disease Does patient have nerve No 08/05/24 14:04 stimulator Patient instructed to have device shut off --Does patient have Pacemaker or ICD? When Was Last Pacemaker Check QUESTION #4 FULL TEXT: You/Your Family Experience fever (hyperthermia) with Anesthesia Last Oral Intake Last Oral intake: Last Oral Intake NPO since Meds taken in AM with sips of water? Meds patient instructed to take am of surgery PONV PONV - business solutions director: PONV - business solutions director Female No 08/05/24 14:04 HX of Motion Sickness No 08/05/24 14:04 HX of N/V After Surgery No 08/05/24 14:04 Non-Smoker No 08/05/24 14:04 Duration of Surgery greater Yes 08/05/24 14:04 than 60 minutes Number of Risk Factors 1 08/05/24 14:04 PONV Score Low Risk 08/05/24 14:04 Height & Weight Height & Weight: Anesthesia: Height & Weight Height 5 ft 9 in 07/07/24 14:56 Respiratory Assessment Respiratory Assessment - business solutions director: Respiratory Tract Infection Hx - business solutions director Hx Respiratory Tract Infection No 08/05/24 14:04 STOP Sleep Apnea STOP Sleep Apnea - business solutions director: STOP Sleep Apnea - business solutions director Hx Hypertension No 08/05/24 14:04 Hx Sleep Apnea No 08/05/24 14:04 CPAP BIPAP Do you snore loudly (louder No 08/05/24 14:04 than talking or can be heard Do you often feel tired/ No 08/05/24 14:04 fatigued/ sleepy during daytime? Has anyone observed you stop No 08/05/24 14:04 breathing during sleep? STOP Results Negative 08/05/24 14:04 QUESTION #5 FULL TEXT : Do you snore loudly (louder than talking or can be heard through closed doors)? Tobacco Use History Tobacco Use History - business solutions director: Tobacco Use History - business solutions director Tobacco Use Smoking Status Current every day smoker 08/05/24 14:04 Hx Tobacco Use Yes 08/05/24 14:04 Years Smoking Packs Smoked per Day Smoking Cessation Date was within the last 15 years Hx Smoking Cessation Date Hx Smoking Cessation Counseling Hematologic Medial History Hematologic Hx - business solutions director: Hematologic Medical Hx - documentation nurse Hx of Blood Transfusion No 08/05/24 14:04 Hx of Transfusion in last 3 No 08/05/24 14:04 Months Date of Last Transfusion (if within last 3 months) Ever experience any problems No 08/05/24 14:04 with transfusion(s)? Specify any problems Hx of Preganancy in last 3 N/A 08/05/24 14:04 Months Nurse Filling Out Transfusion DSCHRIBER 08/05/24 14:04 & Questions: Date: 08/05/24 08/05/24 14:04 Time: 14:06 08/05/24 14:04 Patient unable to answer at this time (ie. confused, unrespo /Reproduction History /Reproductive History - business solutions director: /Reproductive Hx- business solutions director Hx Now No 08/05/24 14:04 Gestational Age (in weeks): EDC: Hx Hx Para Hx Section SAB No 08/05/24 14:04 Active Medications Active Medications: Current Medications Generic Name Dose Route Start Last Admin Trade Name Freq PRN Reason Stop Dose Admin Cefazolin Sodium 2 gm/ N/A 20 mls @ 400 mls/hr 08/16/24 14:55 IV 08/16/24 14:57 PREOP ONE Lactated Ringer's 1,000 mls @ 15 mls/hr 08/16/24 12:45 IV 08/22/24 02:04 .Q48H [facility] Protocol PFSH Medical History Wears contact lenses Alcohol use Prostate disease High cholesterol Injury of back Dietary restriction Smoker Cardiology follow-up encounter History of echocardiogram Hyperlipidemia Diabetes SVT (supraventricular tachycardia) Home Medications ?Medication ?Instructions ?Recorded ?Last Taken ?Type metformin 500 mg 24 hr 1,000 mg PO BIDCM 01/21/17 Unknown History tablet,extended release (gastric retention) pravastatin 40 mg tablet 40 mg PO QHS 01/21/17 Unknown History tamsulosin 0.4 mg capsule (Flomax) 0.4 mg PO QHS 01/21/17 Unknown History oxycodone-acetaminophen 5 mg-325 1 tab PO Q4H PRN Pain 3 days #15 07/07/24 Unknown Rx mg tablet TABLETS oxycodone 5 mg tablet 5 mg PO Q6H PRN pain 3 days #14 07/26/24 Unknown Rx tabs cholecalciferol (vitamin D3) 25 25 mcg PO DAILY 08/05/24 Unknown History mcg (1,000 unit) capsule (Vitamin D3) ferrous sulfate 325 mg (65 mg 325 mg PO DAILY 08/05/24 Unknown History iron) tablet (iron) finasteride 5 mg tablet 5 mg PO DAILY 08/05/24 Unknown History multivitamin (Daily Multi-Vitamin 1 tab PO DAILY 08/05/24 Unknown History tablet) sitagliptin phosphate 100 mg 100 mg PO DAILY 08/05/24 Unknown History tablet (Januvia) vitamin E 268 mg (400 unit) capsule 268 mg PO DAILY 08/05/24 Unknown History Allergy/AdvReac Type Severity Reaction Status Date / Time morphine Allergy Nausea/Vom/ Verified 08/05/24 13:59 Diarrhea Surgical History History of cystoscopy Social History Smoking Status: Current every day smoker tobacco type: cigarettes Review of Systems (Anesthesia) ROS Narrative System reviewed and no additional complaints, except as documented.
[2024-08-16] MEDS: Lactated Ringers 1,000 ML 15 ML IV (13:09)
[2024-08-16 13:36] LABS: Bedside Glucose 265 mg/dL (74-106)
[2024-08-16] MEDS: Cefazolin 2 GM in Syringe IV (13:44)
--- NOTE | 2024-08-16 14:55 | HP.PCM_ITS ---
HPI - General General Date of Service: 08/16/24 Chief Complaint: Bilateral kidney stones HPI Narrative SLAVA FERNANDEZ, is a 63 M who presents to laser stones in both kidneys he had a very large stone in the right kidney underwent shockwave lithotripsy and stent placement by a lot of fragments left so needs to finish lasering the stones and he also has some many stones in the left kidney as well that we need to laser supply the laser stones in both kidneys and remove the stent on the right side. [facility] Medical History Wears contact lenses Alcohol use Prostate disease High cholesterol Injury of back Dietary restriction Smoker Cardiology follow-up encounter History of echocardiogram Hyperlipidemia Diabetes SVT (supraventricular tachycardia) Home Medications ?Medication ?Instructions ?Recorded ?Last Taken ?Type metformin 500 mg 24 hr 1,000 mg PO BIDCM 01/21/17 Unknown History tablet,extended release (gastric retention) pravastatin 40 mg tablet 40 mg PO QHS 01/21/17 Unknown History tamsulosin 0.4 mg capsule (Flomax) 0.4 mg PO QHS 01/21/17 Unknown History oxycodone-acetaminophen 5 mg-325 1 tab PO Q4H PRN Pain 3 days #15 07/07/24 Unknown Rx mg tablet TABLETS oxycodone 5 mg tablet 5 mg PO Q6H PRN pain 3 days #14 07/26/24 Unknown Rx tabs cholecalciferol (vitamin D3) 25 25 mcg PO DAILY 08/05/24 Unknown History mcg (1,000 unit) capsule (Vitamin D3) ferrous sulfate 325 mg (65 mg 325 mg PO DAILY 08/05/24 Unknown History iron) tablet (iron) finasteride 5 mg tablet 5 mg PO DAILY 08/05/24 Unknown History multivitamin (Daily Multi-Vitamin 1 tab PO DAILY 08/05/24 Unknown History tablet) sitagliptin phosphate 100 mg 100 mg PO DAILY 08/05/24 Unknown History tablet (Januvia) vitamin E 268 mg (400 unit) capsule 268 mg PO DAILY 08/05/24 Unknown History ciprofloxacin HCl 500 mg tablet 500 mg PO BID #14 tabs 08/16/24 Unknown Rx (Cipro) docusate sodium 100 mg capsule 100 mg PO BID #20 caps 08/16/24 Unknown Rx (Colace) oxycodone 5 mg tablet 5 mg PO Q6H PRN pain 3 days #14 08/16/24 Unknown Rx tabs phenazopyridine 100 mg tablet 100 mg PO TID #10 tabs 08/16/24 Unknown Rx (Pyridium) Allergy/AdvReac Type Severity Reaction Status Date / Time morphine Allergy Nausea/Vom/ Verified 08/16/24 13:06 Diarrhea Surgical History History of cystoscopy Social History Smoking Status: Current every day smoker tobacco type: cigarettes Vital Signs Vital Signs Vital Signs: 08/16/24 13:09 08/16/24 13:09 Temperature 97.8 F Temperature Source Temporal Pulse Rate 84 Respiratory Rate 16 Respiratory Pattern Normal Blood Pressure 131/84 H Blood Pressure Mean 99 Blood Pressure Source Monitor Blood Pressure Position Sitting Blood Pressure Location Left Arm Pulse Ox 100 Oxygen Delivery Method Room Air Weight Weight: 77.1 kg Body Mass Index (BMI) 25.1 Results Lab / Micro Data Labs: Laboratory Results - last 24 hr 08/16/24 12:56: POC Glucose 265 H
--- NOTE | 2024-08-16 14:55 | PCM.DC ---
Discharge Instructions Diet Discharge Diet: No restrictions, Light diet - advance as tolerated and Soft diet DC O2, CPAP, BIPAP needs Additional Home O2 Discharge instructions: No Dressing / Incision Discharge Activity: Return to Normal Activity, May Not Drive and May Shower Additional Activity Instructions:: Push fluids Dressing / Incision Call your doctor if you observe: Fever of 101 or Higher and Uncontrolled pain Follow Up Care Please Follow Up With: Santino Bui MD When: Call for appointment Test Results: Test results from this visit will be discussed in further detail at your follow-up appointment, if applicable. Discharge Plan Admission Primary Reason for Your Visit: laser of stones Attending Provider: Santino Bui Primary Care Provider: Howie Nicolas Instructions Patient Instructions: Kidney Stone Ureteroscopy Print Language: [place] Discharge Orders/Prescriptions Prescriptions: New ciprofloxacin HCl [Cipro] 500 mg tablet 500 mg PO BID Qty: 14 0RF docusate sodium [Colace] 100 mg capsule 100 mg PO BID Qty: 20 0RF phenazopyridine [Pyridium] 100 mg tablet 100 mg PO TID Qty: 10 0RF oxycodone 5 mg tablet 5 mg PO Q6H PRN (Reason: pain) 3 Days Qty: 14 0RF Continued pravastatin 40 MG tablet 40 mg PO QHS tamsulosin [Flomax] 0.4 MG capsule 0.4 mg PO QHS metformin 500 MG tablet,ER koki.retention 24 hr 1,000 mg PO BIDCM oxycodone-acetaminophen 5-325 mg tablet 1 tab PO Q4H PRN (Reason: Pain) 3 Days Qty: 15 0RF oxycodone 5 mg tablet 5 mg PO Q6H PRN (Reason: pain) 3 Days Qty: 14 0RF finasteride 5 mg tablet 5 mg PO DAILY Januvia 100 mg tablet 100 mg PO DAILY cholecalciferol (vitamin D3) [Vitamin D3] 25 mcg (1,000 unit) capsule 25 mcg PO DAILY vitamin E 268 mg (400 unit) capsule 268 mg PO DAILY multivitamin [Daily Multi-Vitamin] Tablet 1 tab PO DAILY ferrous sulfate [iron] 325 mg (65 mg iron) tablet 325 mg PO DAILY Referrals / Follow Up: Howie Nicolas MD [Primary Care Provider] - Santino Bui MD [Med Staff - Active Staff] - Disposition Disposition (needs filled in before D/C Order can be placed): Home, Self Care
--- NOTE | 2024-08-16 14:56 | PCM.OPRPT ---
Operative Report (Standard) Operative Information Date of Procedure: 08/16/24 Pre-Operative Diagnosis: Bilateral kidney stones status post right ESWL Post-Operative Diagnosis: The same Surgery/Procedure Performed: cystoscopy right ureteroscopy laser lithotripsy of multiple stone fragments and removal of right stent, left ureteroscopy balloon dilation of the left ureter laser of stones and no stent impress associate: No Type of Anesthesia: General RN Documented Start/Stop Times: Operation Date: 08/16/24 14:55 Case Time Into Pre-Op 08/16/24 12:39 Anesthesia Start 08/16/24 13:44 Into Room 08/16/24 13:44 Procedure Start 08/16/24 14:00 Procedure End 08/16/24 14:50 Procedure Start Time: 14:00 Procedure Stop Time: 14:57 Select all DRAINS/GRAFTS/IMPLANTS that apply: None Estimated Blood Loss: None Specimen collected: No Description of surgery: Patient was taken back to the anesthesia operating room and underwent general anesthesia he was placed in dorsolithotomy position, the penis testicles were prepped and draped in usual fashion went into the bladder with a 21 [place]inese rigid cystourethroscope with a 30 degree lens identified the stent pulled the stent out to the meatus pulled the stent out completely and then put in a wire and then put a wire up on the right side and then over the right side I went up with the ureteroscope and encountered a bunch of fragments these were leftover fragments from shockwave lithotripsy prior to procedure but he is still significant fragments. And went up and lasered the stones completely into small little pieces took about 45 minutes to laser the stones all the way and then worked my way down the ureter, I did not put a stent up on that side and left got a stent he has only small little pieces that should all pass on their own, and then went up to the left side with a wire balloon dilated the distal left ureter. And then went up the left ureter up to the left kidney and lasered the stones in the left kidney and the lower pole into little tiny pieces once this was successfully lasered then I worked my way down the ureter no stent was placed bladder was drained anesthetic was reversed taken back to down to the PACU in stable condition. Successfully lasered stones in the right kidney and remove the stent, and then successfully lasered all the stones in the left kidney and I decided not to place a stent to the very small stones. Surgical Findings: Stones in the right kidney lasered completely and swallow pieces, stent removed Stones in the left kidney lasered completely no stent placed Complications Complications: No Admit VTE Documentation VTE Present on Admission: No VTE Mechan Device Prophylaxis: SCD's VTE Pharm Prophylaxis ordered?: No
--- NOTE | 2024-08-16 15:02 | PCM.POST.ANE ---
Anesthesia: Postop Eval I Current Vital Signs Temperature: 97.5 F Pulse Rate: 78 Blood Pressure: 146/84 Respiratory Rate: 18 Pulse Ox: 98 Assessment Airway patent: Yes Spontaneous unlabored respirations: Yes nausea: No Vomiting: No Anesthesia Complication: No Fluid Hydration Crystalloid volume administer (ml): 1,000 Total IV fluid infused: 1,000 Progress Note Anesthesia document: Postop Eval 1 completed: Yes
[2024-08-16] MEDS: Ketorolac 15 MG/ML Vial IV (15:27)
--- NOTE | 2024-08-16 17:58 | POSTOPAN2_ITS ---
Anesthesia Postop Eval I Sum Postop Eval Completion status Anesthesia document: Postop Eval 1 completed: Yes Anesthesia Postop Eval I Summary Anesthesia Postop Eval I Summary: Anesthesia Postop Eval I: Assessment Summary Airway patent Yes 08/16/24 15:02 ACCOUNTS RECEIVABLE SPECIALIST.CSIR Spontaneous unlabored Yes 08/16/24 15:02 ACCOUNTS RECEIVABLE SPECIALIST.CSIR respirations Mental status nausea No 08/16/24 15:02 ACCOUNTS RECEIVABLE SPECIALIST.CSIR Vomiting No 08/16/24 15:02 ACCOUNTS RECEIVABLE SPECIALIST.CSIR Anesthesia Postop Eval I: Fluid Summary Crystalloid volume administer 1,000 08/16/24 15:02 ACCOUNTS RECEIVABLE SPECIALIST.CSIR (ml) Colloids volume administered ( ml) Blood Product volume administered (ml) Total IV fluid infused 1,000 08/16/24 15:02 ACCOUNTS RECEIVABLE SPECIALIST.CSIR Anesthesia Postop Eval I: Summary Notes Anesthesia Complication No 08/16/24 15:02 ACCOUNTS RECEIVABLE SPECIALIST.CSIR Anesthesia Complication Comment: Post-operative progress note Anesthesia: Postop Eval II Evaluation Mental status: Awake Pain Level: 0 nausea: No Vomiting: No
--- NOTE | 2024-08-16 17:58 | PCM.POSTANE2 ---
Anesthesia Postop Eval I Sum Postop Eval Completion status Anesthesia document: Postop Eval 1 completed: Yes Anesthesia Postop Eval I Summary Anesthesia Postop Eval I Summary: Anesthesia Postop Eval I: Assessment Summary Airway patent Yes 08/16/24 15:02 REMELT FURNACE EXPEDITER.CSIR Spontaneous unlabored Yes 08/16/24 15:02 REMELT FURNACE EXPEDITER.CSIR respirations Mental status nausea No 08/16/24 15:02 REMELT FURNACE EXPEDITER.CSIR Vomiting No 08/16/24 15:02 REMELT FURNACE EXPEDITER.CSIR Anesthesia Postop Eval I: Fluid Summary Crystalloid volume administer 1,000 08/16/24 15:02 REMELT FURNACE EXPEDITER.CSIR (ml) Colloids volume administered ( ml) Blood Product volume administered (ml) Total IV fluid infused 1,000 08/16/24 15:02 REMELT FURNACE EXPEDITER.CSIR Anesthesia Postop Eval I: Summary Notes Anesthesia Complication No 08/16/24 15:02 REMELT FURNACE EXPEDITER.CSIR Anesthesia Complication Comment: Post-operative progress note Anesthesia: Postop Eval II Evaluation Mental status: Awake Pain Level: 0 nausea: No Vomiting: No
== END 2024-08-16 16:16 | disposition home or self-care (01) ==
LOC: SDC 12:36 → AC 12:37
PROVIDERS: PCP Family Medicine; Referring Provider Urology; Visit Provider Urology
PROC: 0TJ98ZZ Inspection of Ureter, Via Natural or Artificial Opening Endoscopic (ICD-10-PCS; CPT 52352; principal; 2024-08-16 14:45)
DX: N20.0 Calculus of kidney (principal); E11.9 Type 2 diabetes mellitus without complications; F17.210 Nicotine dependence, cigarettes, uncomplicated; E78.00 Pure hypercholesterolemia, unspecified; Z98.890 Other specified postprocedural states; Z79.84 Long term (current) use of oral hypoglycemic drugs; Z79.899 Other long term (current) drug therapy
CPT/HCPCS: 52353; 00873; 76000; 82962; A4216; C1769; C2617; J2405

== ENCOUNTER → 2024-10-03 | Outpatient (CLI) | payer OTHER, SELFPAY ==
[2024-10-03 17:36] LABS: PSA,Total- Diagnostic 0.61 ng/mL (0.0-4.0)
== END | disposition home or self-care (01) ==
LOC: LAB 16:08
PROVIDERS: PCP Family Medicine; Referring Provider Urology; Visit Provider Urology
DX: N40.1 Benign prostatic hyperplasia with lower urinary tract symptoms (principal)
CPT/HCPCS: 36415; 84153